=== PATIENT | female | born 1950 | race Caucasian/White ===

== ENCOUNTER 2017-05-18 06:08 | Emergency (ER) | payer MEDICARE ==
[2017-05-18] MEDS ORDERED: IPRATROPIUM/ALBUTEROL 0.5-2.5 MG/3 ML AMPUL NEB ONE (06:33)
[2017-05-18] MEDS ORDERED: PREDNISONE 20 MG TABLET PO ONE (06:34)
--- NOTE | 2017-05-18 06:38 | ER Document Report ---
ED Respiratory Problem - General Chief Complaint: Shortness Of Breath Stated Complaint: DIFFICULTY BREATHING,EAR PAIN Time Seen by Provider: 05/18/17 06:33 Notes: The patient is a 66-year-old female, past medical history asthma, presents with 4 days of sinus congestion, bilateral ear pain and one night of productive cough and shortness of breath. She tried her albuterol inhaler without much relief of her symptoms. Her granddaughter had similar symptoms this week. Patient denies fevers, hemoptysis, increased leg swelling, nausea, vomiting, abdominal pain, chest pain or recent travel. TRAVEL OUTSIDE OF THE [place] IN LAST 30 DAYS: No - Related Data Allergies/Adverse Reactions: No Known Allergies Allergy (Verified 05/18/17 06:14) Past Medical History - General Information source: Patient - Social History Smoking Status: Unknown if Ever Smoked Family History: CAD - Past Medical History Cardiac Medical History: Reports: Hx Hypercholesterolemia, Hx Hypertension Pulmonary Medical History: Reports: Hx Asthma Endocrine Medical History: Reports: Hx Diabetes Mellitus Type 2 Musculoskeltal Medical History: Reports Hx Arthritis Psychiatric Medical History: Reports: Hx Depression Past Surgical History: Reports: Hx Orthopedic Surgery - bilat knee - Immunizations Hx Pneumococcal Vaccination: 06/24/09 Review of Systems - Review of Systems Notes: REVIEW OF SYSTEMS: CONSTITUTIONAL: -fevers, -chills EENT: -eye pain, -difficulty swallowing, +nasal congestion, +ear pain CARDIOVASCULAR:-chest pain, -syncope. RESPIRATORY: +cough, +SOB GASTROINTESTINAL: -abdominal pain, - nausea, -vomiting, -diarrhea GENITOURINARY: -dysuria, -hematuria MUSCULOSKELETAL: -back pain, -neck pain SKIN: -rash or skin lesions. HEMATOLOGIC: -easy bruising or bleeding. LYMPHATIC: -swollen, enlarged glands. NEUROLOGICAL: -altered mental status or loss of consciousness, -headache, - neurologic symptoms PSYCHIATRIC: -anxiety, -depression. ALL OTHER SYSTEMS REVIEWED AND NEGATIVE. Physical Exam - Vital signs Vitals: Temp Pulse Resp BP Pulse Ox 98.5 F 110 H 16 174/70 H 94 05/18/17 06:14 05/18/17 06:14 05/18/17 06:14 05/18/17 06:14 05/18/17 06:14 - Notes Notes: PHYSICAL EXAMINATION: GENERAL: Anxious appearing. HEAD: Atraumatic, normocephalic. EYES: Pupils equal round and reactive to light, extraocular movements intact, sclera anicteric, conjunctiva are normal. ENT: nares patent, oropharynx clear without exudates. Moist mucous membranes. Maxillary sinus tenderness. Normal TMs. Wax in left ear canal. NECK: Normal range of motion, supple without lymphadenopathy LUNGS: Wheezing in Right Upper Lung. Crackles in B/L lower lung bases. No respiratory distress. HEART: Tachycardia. ABDOMEN: Soft, nontender, normoactive bowel sounds. No guarding, no rebound. No masses appreciated. EXTREMITIES: Strong distal pulses. Swelling of B/L calves. NEUROLOGICAL: Cranial nerves grossly intact. Normal speech, normal gait. Normal sensory and motor exams. PSYCH: Anxious appearing. SKIN: Warm, Dry, normal turgor, no rashes or lesions noted. Course - Re-evaluation Re-evalutation: Patient appears well and says she feels much better. CTA does not show evidence of PE, but does show evidence of bilateral pneumonias. Also informed patient about presence of lymphadenopathy and follow-up with her primary care physician for further evaluation and treatment. A copy of her CTA was provided to the patient. A dose of IV antibiotics was prescribed to the patient and she will go home with oral antibiotics. She is not hypoxic and her tachycardia resolved. Rest of blood work is unremarkable. Patient given very strict return precautions and she understands. - Vital Signs Vital signs: Temp Pulse Resp BP Pulse Ox 98.5 F 110 H 16 174/70 H 94 05/18/17 06:14 05/18/17 06:14 05/18/17 06:14 05/18/17 06:14 05/18/17 06:14 - Laboratory Result Diagrams: 05/18/17 07:05 05/18/17 07:05 Laboratory results interpreted by me: 05/18/17 05/18/17 05/18/17 07:05 07:05 07:05 WBC 13.1 H Hgb 11.6 L Hct 35.3 L Seg Neutrophils % 81.5 H Lymphocytes % 8.2 L Absolute Neutrophils 10.7 H D-Dimer 2.20 H Est GFR ( Amer) 59 L Est GFR (Non-Af Amer) 49 L Glucose 260 H Direct Bilirubin 0.5 H - Diagnostic Test Radiology reviewed: Image reviewed, Reports reviewed Radiology results interpreted by me: CXR: NAD CTA Chest: 1. No pulmonary embolus. 2. Patchy right greater than left lung infiltrates. 3. Mild mediastinal and hilar adenopathy, nonspecific. This needs further clinical followup. There is mild right axillary adenopathy which appears to have been present previously, but likely slightly progressive. Discharge - Discharge Clinical Impression: Lymphadenopathy Pneumonia Qualifiers: Pneumonia type: due to unspecified organism Laterality: bilateral Lung location : lower lobe of lung Qualified Code(s): J18.9 - Pneumonia, unspecified organism Condition: Stable Disposition: HOME, SELF-CARE Additional Instructions: PNEUMONIA: Your examination indicates that you have pneumonia. This is an infection of the lung tissue, usually caused by bacteria or a virus. Symptoms include cough, fever, shaking chills, chest pain, shortness of breath, and coughing up bloody sputum. Treatment for bacterial pneumonia includes rest, antibiotics for 10 to 14 days, increasing your clear liquid intake, a cool mist humidifier at your bedside, and fever medication. Often, a repeat chest X-ray is performed in a few weeks--even if you feel better--to ascertain whether the infection has completely resolved and no underlying lung problem is present. You should call the physician if you develop persistent vomiting, high fever that does not respond to fever medication, increasing shortness of breath , confusion, or lethargy. Also, failure to improve within two to three days is an indication for re-examination. ANTIBIOTIC INJECTION: You have been given an antibiotic injection. Sometimes the injection must be combined with antibiotic pills. For some infections, the shot provides all the antibiotic that's needed. Common side effects of antibiotics include nausea, intestinal cramping, or diarrhea. These are very unusual following a shot. Women may develop vaginal yeast infections, and babies can get yeast ( thrush) in the mouth following the use of antibiotics. Contact your physician if you develop significant side effects from this medication. Allergy to this antibiotic can result in hives, wheezing, faintness, or itching. If symptoms of allergy occur, call the doctor at once. ROCEPHIN: You have been given an injection of an antibiotic called Rocephin ( ceftriaxone). Sometimes the injection must be combined with antibiotic pills. For some infections, such as an uncomplicated ear infection, Rocephin provides all the antibiotic that's needed. The antibiotic will be in your body for about two days. For serious infections, we usually repeat doses of Rocephin daily. Side effects are very unusual following a shot. Women may develop vaginal yeast infections, and babies can get yeast (thrush) in the mouth following the use of antibiotics. Contact your physician if you have symptoms with this medication. Allergy to this antibiotic can result in hives, wheezing, faintness, or itching. If symptoms of allergy occur, call the doctor at once. ANTIBIOTIC THERAPY: You have been given an antibiotic prescription. It's important that you take all the medication, unless instructed otherwise by your physician. Failure to complete the entire course can result in relapse of your condition. Common side effects of antibiotics include nausea, intestinal cramping, or diarrhea. Women may develop vaginal yeast infections, and babies can get yeast (thrush) in the mouth following the use of antibiotics. Contact your physician if you develop significant side effects from this medication. Allergy to this antibiotic can result in hives, wheezing, faintness, or itching. If symptoms of allergy occur, stop the medication and call the doctor. DOXYCYCLINE: Doxycycline (Vibramycin, Doryx) is an antibiotic of the tetracycline family. This type of drug is useful for infections of the respiratory tract and genital tract, and is sometimes used for intestinal infections. Unlike most tetracyclines, doxycycline can be taken with food. It is longer acting, and (usually) less prone to side effects than regular tetracycline. Tetracycline antibiotics can stain immature teeth and SHOULD NOT BE TAKEN BY CHILDREN, NURSING MOTHERS, OR WOMEN. Tetracyclines can make you more prone to sunburn. Abdominal cramping, nausea, and diarrhea are occasional side effects. Women may experience vaginal yeast infections. Call the doctor at once if you develop hives, itching, shortness of breath , or lightheadedness. USE OF ACETAMINOPHEN (Tylenol): Acetaminophen may be taken for pain relief or fever control. It's much safer than aspirin, offering a wider range of "safe" dosages. It is safe during . Some brand names are Tylenol, Panadol, Datril, Anacin 3, Tempra, and Liquiprin. Acetaminophen can be repeated every four hours. The following are maximum recommended dosages: WEIGHT Dose Drops Elixir Chewable( 80mg) (LBS.) drprs=droppers tsp=teaspoon 6 40 mg 0.4 ml (1/2) 6-11 80 mg 0.8 ml (full) tsp 1 tab 12-16 120 mg 1 1/2 drprs 3/4 tsp 1 1/2 tabs 17-23 160 mg 2 drprs 1 tsp 2 tabs 24-30 240 mg 3 drprs 1 1/2 tsp 3 tabs 30-35 320 mg 2 tsp 4 tabs 36-41 360 mg 2 1/4 tsp 4 1/2 tabs 42-47 400 mg 2 1/2 tsp 5 tabs 48-53 480 mg 3 tsp 6 tabs 54-59 520 mg 3 1/4 tsp 6 1/2 tabs 60-64 560 mg 3 1/2 tsp 7 tabs 65-70 600 mg 3 3/4 tsp 7 1/2 tabs 71-76 640 mg 4 tsp 8 tabs 77-82 720 mg 4 1/2 tsp 9 tabs 83-88 800 mg 5 tsp 10 tabs >89 pounds or adults 650 mg to 900 mg Acetaminophen can be repeated every four hours. Maximum dose not to exceed 4000 mg a day. These maximum recommended dosages are slightly higher than the dosages written on the product container, but these dosages are very safe and below the toxic dosage for acetaminophen. FOLLOW-UP CARE: If you have been referred to a physician for follow-up care, call the physician s office for an appointment as you were instructed or within the next two days. If you experience worsening or a significant change in your symptoms, notify the physician immediately or return to the Emergency Department at any time for re-evaluation. Prescriptions: Albuterol Sulfate [Proair HFA Inhalation Aerosol 8.5 gm MDI] 2 puff IH Q4H PRN # 1 mdi PRN Reason: Doxycycline Hyclate 100 mg PO BID #14 capsule Forms: Elevated Blood Pressure Referrals: EHSAN RIOS PA-C [Primary Care Provider] - Follow up as needed
[2017-05-18 07:36] LABS: ABSOLUTE BASOPHILS # (AUTO) 0.1 10^3/uL (0.0-0.2); ABSOLUTE LYMPHOCYTES (AUTO) 1.1 10^3/uL (0.5-4.7); ABSOLUTE MONOCYTES (AUTO) 1.2 10^3/uL (0.1-1.4); ABSOLUTE NEUT (AUTO) 10.7 10^3/uL (1.7-8.2); EOSINOPHILS % (AUTO) 0.1 % (0-6); HEMATOCRIT 35.3 % (36.0-47.0); HEMOGLOBIN 11.6 g/dL (12.0-15.5); HGB HCT DIFFERENCE -0.5; LYMPHOCYTES % (AUTO) 8.2 % (13-45); MEAN CORPUSCULAR HEMOGLOBIN 30.5 pg (27.0-33.4); MEAN CORPUSCULAR HGB CONC 32.9 g/dL (32.0-36.0); MEAN CORPUSCULAR VOLUME 93 fl (80-97); MONOCYTES % (AUTO) 9.2 % (3-13); RED BLOOD COUNT 3.81 10^6/uL (3.72-5.28); RED CELL DISTRIBUTION WIDTH 12.8 % (11.5-14.0); SEGMENTED NEUTROPHILS % (AUTO) 81.5 % (42-78); WHITE BLOOD COUNT 13.1 10^3/uL (4.0-10.5)
[2017-05-18 07:49] LABS: ALANINE AMINOTRANSFERASE 40 U/L (9-52); ALBUMIN 3.7 g/dL (3.5-5.0); ALKALINE PHOSPHATASE 82 U/L (38-126); ANION GAP 15 (5-19); ASPARTATE AMINO TRANSFERASE 16 U/L (14-36); BILIRUBIN,DIRECT 0.5 mg/dL (0.0-0.4); BILIRUBIN,TOTAL 0.5 mg/dL (0.2-1.3); BLOOD UREA NITROGEN 20 mg/dL (7-20); CALCIUM 9.5 mg/dL (8.4-10.2); CARBON DIOXIDE 24 mmol/L (22-30); CHLORIDE 102 mmol/L (98-107); CREATININE RESULT 1.12 mg/dL (0.52-1.25); GLUCOSE 260 mg/dL (75-110); POTASSIUM 4.5 mmol/L (3.6-5.0); TOTAL PROTEIN 7.5 g/dL (6.3-8.2)
[2017-05-18] MEDS ORDERED: MIDAZOLAM 2 MG/2 ML INJ IV ONE (08:17)
--- NOTE | 2017-05-18 08:43 | RADIOLOGY REPORT (SQ) ---
EXAM DESCRIPTION: CHEST PA/LAT COMPLETED DATE/TIME: 05/18/2017 8:25 am REASON FOR STUDY: SOB COMPARISON: 2013. TECHNIQUE: Frontal and lateral radiographic views of the chest acquired. NUMBER OF VIEWS: Two view. LIMITATIONS: None. FINDINGS: LUNGS AND PLEURA: No opacities, masses or pneumothorax. No pleural effusion. MEDIASTINUM AND HILAR STRUCTURES: No masses or contour abnormalities. HEART AND VASCULAR STRUCTURES: Heart normal size. No evidence for failure. BONES: No acute findings. HARDWARE: None in the chest. OTHER: No other significant finding. IMPRESSION: NO SIGNIFICANT RADIOGRAPHIC FINDING IN THE CHEST. TECHNICAL DOCUMENTATION: JOB ID: [id number] [employer]- All Rights Reserved
--- NOTE | 2017-05-18 09:07 | RADIOLOGY REPORT (SQ) ---
EXAM DESCRIPTION: CTA CHEST COMPLETED DATE/TIME: 05/18/2017 8:43 am REASON FOR STUDY: SOB, tachycardia, elevated d-dimer COMPARISON: 2013 TECHNIQUE: CT scan of the chest performed using helical scanning technique with dynamic intravenous contrast injection. Images reviewed with lung, soft tissue and bone windows. Reconstructed coronal and sagittal MPR images reviewed. Additional 3 dimensional post-processing performed to develop Maximal Intensity Projection images (CA P). All images stored on PACS. All CT scanners at this facility use dose modulation, iterative reconstruction, and/or weight based d osing when appropriate to reduce radiation dose to as low as reasonably achievable (ALARA). [facility]: Dose Right [facility]: CareDose [facility]: Dose Right [facility]: Teradose 4D [facility]: Greatist CONTRAST TYPE AND DOSE: contrast/concentration: Isovue 370.00 mg/ml; Total Contrast Delivered: 86.0 ml; Total Saline Delivered: 80.1 ml Contrast bolus optimized for the pulmonary arteries. Not diagnostic for the aorta. RENAL FUNCTION: Creatinine 1.1 RADIATION DOSE: CT Rad equipment meets quality standard of care and radiation dose reduction techniq ues were employed. CTDIvol: 34.1 - 49.6 mGy. DLP: 1270 mGy-cm. . LIMITATIONS: None. FINDINGS: LUNGS AND PLEURA: Mild patchy nodular appearing areas of infiltrate in the right upper lob e, right middle lobe, right lower lobe. Also suggested in the left lower lobe. No significant pleur al effusion. AORTA AND GREAT VESSELS: No aneurysm. Contrast bolus not optimized for the aorta. HEART: No pericardial effusion. No significant coronary artery calcifications. PULMONARY ARTERIES: No emboli visualized in the main pulmonary arteries or the segmental branches. HILAR AND MEDIASTINAL STRUCTURES: Mild nonspecific patch that mild adenopathy with nodes measuring ju st under 1.5 cm short axis maximally. Mediastinal and right greater than left hilar. Slightly consp icuous number and size of right axillary nodes as well, up to 1.4 cm in short axis. HARDWARE: None in the chest. UPPER ABDOMEN: No significant findings. Limited exam. THYROID AND OTHER SOFT TISSUES: No masses. No adenopathy. BONES: No acute or significant finding. 3D MIPS: Confirm above findings. OTHER: No other significant finding. IMPRESSION: 1. No pulmonary embolus. 2. Patchy right greater than left lung infiltrates. 3. Mild m ediastinal and hilar adenopathy, nonspecific. This needs further clinical followup. There is mild r ight axillary adenopathy which appears to have been present previously, but likely slightly progressi ve. COMMENT: Quality ID # [id number]: Final reports with documentation of one or more dose reduction techniques (e.g., Automated exposure control, adjustment of the mA and/or kV according to patient size, use of iterative reconstruction technique) TECHNICAL DOCUMENTATION: JOB ID: [id number] [employer]- All Rights Reserved
[2017-05-18] MEDS ORDERED: CEFTRIAXONE 1 GM/D5W RTU 1 GM/50 ML RTUPB IV ONE (09:08)
[2017-05-18] MEDS ORDERED: AZITHROMYCIN INJ 500 MG VIAL IV ONE (09:08)
[2017-05-18] MEDS ORDERED: DOXYCYCLINE HYCLATE 100 MG TABLET PO ONE (10:16)
[2017-05-18 10:37] VITALS: BP 156/78
--- NOTE | 2017-05-18 14:07 | EKG REPORT ---
SEVERITY:- NORMAL ECG - SINUS RHYTHM : Confirmed by: Georgia Wu MD 18-May-2017 14:07:05
== END 2017-05-18 11:30 | disposition home or self-care (01) ==
LOC: ER 06:08
DX: J18.9 Pneumonia, unspecified organism (principal); J45.909 Unspecified asthma, uncomplicated; R59.0 Localized enlarged lymph nodes; R09.81 Nasal congestion; H92.03 Otalgia, bilateral; R05 Cough; R06.02 Shortness of breath; R00.0 Tachycardia, unspecified; E11.9 Type 2 diabetes mellitus without complications; I10 Essential (primary) hypertension; Z82.49 Family history of ischemic heart disease and other diseases of the circulatory system
CPT/HCPCS: 93005; 94640; 99285; 96375; 96365; 96367; 36415; 85025; 80053; 85379; 71020; 71275; 93010; J2250; A9270 ×3; J0456; J0696; J7512; J7620

== ENCOUNTER 2018-04-11 00:19 | Inpatient (IN) | payer MEDICARE ==
[2018-04-11] MEDS ORDERED: IPRATROPIUM/ALBUTEROL 0.5-2.5 MG/3 ML AMPUL NEB ONE ×2 (00:30→00:40)
[2018-04-11] MEDS ORDERED: METHYLPREDNISOLONE INJ 125 MG/2 ML SDV IV ONE (00:39)
[2018-04-11] MEDS ORDERED: RINGERS SOLUTION,LACTATED 1,000 ML IV ONE (00:40)
[2018-04-11] MEDS ORDERED: ALBUTEROL SULFATE 0.083% NEB 2.5 MG/3 ML AMPUL NEB ONE ×2 (00:41→02:48)
--- NOTE | 2018-04-11 00:52 | ER Document Report ---
ED General - General Chief Complaint: Shortness Of Breath Stated Complaint: SHORTNESS OF BREATH Time Seen by Provider: 04/11/18 00:32 Notes: Patient is a 67-year-old female with a past medical history of asthma, morbid obesity, hypertension, who presents with respiratory distress, cough without sputum production that has been progressively worsening over the last 48 hours. The patient reports that this feels very similar to when she has had pneumonia and asthma exacerbations in the past. She did contact her primary care doctor yesterday regarding this issue, was started on albuterol and doxycycline states that her breathing has progressively worsened prompting her to come to the emergency department today. She denies any fever or constitutional symptoms. Multiple sick contacts at home. She denies chest pain. Nothing worsens her symptoms. TRAVEL OUTSIDE OF THE [place] IN LAST 30 DAYS: No - Related Data Allergies/Adverse Reactions: No Known Allergies Allergy (Verified 05/18/17 06:14) Past Medical History - General Information source: Patient - Social History Smoking Status: Former Smoker Frequency of alcohol use: None Drug Abuse: None Lives with: Family Family History: CAD - Past Medical History Cardiac Medical History: Reports: Hx Hypercholesterolemia, Hx Hypertension Pulmonary Medical History: Reports: Hx Asthma Endocrine Medical History: Reports: Hx Diabetes Mellitus Type 2 Renal/ Medical History: Denies: Hx Peritoneal Dialysis Musculoskeletal Medical History: Reports Hx Arthritis Psychiatric Medical History: Reports: Hx Depression Past Surgical History: Reports: Hx Orthopedic Surgery - bilat knee - Immunizations Hx Pneumococcal Vaccination: 06/24/09 Review of Systems - Review of Systems Notes: Constitutional: Negative for fever. HENT: Negative for sore throat. Eyes: Negative for visual changes. Cardiovascular: Negative for chest pain. Respiratory: Positive for shortness of breath and cough Gastrointestinal: Negative for abdominal pain, vomiting or diarrhea. Genitourinary: Negative for dysuria. Musculoskeletal: Negative for back pain. Skin: Negative for rash. Neurological: Negative for headaches, weakness or numbness. 10 point ROS negative except as marked above and in HPI. Physical Exam - Vital signs Vitals: Temp Pulse Resp BP Pulse Ox 98.9 F 102 H 24 H 166/85 H 94 04/11/18 00:26 04/11/18 00:26 04/11/18 00:26 04/11/18 00:26 04/11/18 00:26 Interpretation: Tachycardic, Tachypneic Notes: PHYSICAL EXAMINATION: GENERAL: In moderate respiratory distress. Uncomfortable HEAD: Atraumatic, normocephalic. EYES: Pupils equal round and reactive to light, extraocular movements intact, sclera anicteric, conjunctiva are normal. ENT: nares patent, oropharynx clear without exudates. Moderately dry mucous membranes. NECK: Normal range of motion, supple without lymphadenopathy LUNGS: Tachypneic, scattered wheezing both on the inspiratory and expiratory phase HEART: Regular tachycardia without murmurs ABDOMEN: Soft, nontender, normoactive bowel sounds. No guarding, no rebound. No masses appreciated. EXTREMITIES: Normal range of motion, no pitting or edema. No cyanosis. NEUROLOGICAL: No focal neurological deficits. Moves all extremities spontaneously and on command. PSYCH: moderately anxious SKIN: Warm, Dry, normal turgor, no rashes or lesions noted. Course - Re-evaluation Re-evalutation: 04/11/18 00:30 Patient presents in respiratory distress, tachypneic, moderately hypoxic, unable to speak in complete sentences. Patient has a history of asthma, states that this feels similar to prior severe exacerbations that she has had in the past. Patient does not require intubation or immediate placement of BiPAP at this point. She has been placed on continuous nebulizers, steroids and magnesium are infusing. Will continue to reassess at regular intervals. 04/11/18 00:53 Patient's work of breathing remains relatively improved on continuous nebulizers. Currently 94% on room air with continuous nebs. Will continue to reassess at regular intervals. 04/11/18 01:48 Patient's breath sounds are much improved although she is struggling to tolerate the continuous neb as she states that is making her nauseated and anxious. I have encouraged her to please continue to comply with treatment as she is improving with these measures. Chest x-ray without evidence of pneumonia. Will continue to reassess. 04/11/18 02:32 Patient's work of breathing continues to be improved although her lung exam remains very poor with diffuse wheezing in all lung vaz. I have discussed with the hospitalist for admission given her ongoing poor lung exam and she has accepted the patient for admission. - Vital Signs Vital signs: Temp Pulse Resp BP Pulse Ox 98.9 F 102 H 24 H 166/85 H 94 04/11/18 00:26 04/11/18 00:26 10/19/18 00:26 04/11/18 00:26 04/11/18 00:26 - Laboratory Result Diagrams: 04/11/18 01:25 04/11/18 01:25 Laboratory results interpreted by me: 04/11/18 04/11/18 01:25 01:25 WBC 13.3 H Seg Neutrophils % 81.6 H Lymphocytes % 10.4 L Absolute Neutrophils 10.9 H Est GFR ( Amer) 55 L Est GFR (Non-Af Amer) 45 L Glucose 255 H Total Protein 8.4 H - Diagnostic Test Radiology reviewed: Image reviewed, Reports reviewed Radiology results interpreted by me: 04/11/18 02:32 Chest x-ray: No acute infiltrate or pneumothorax Critical Care Note - Critical Care Note Total time excluding time spent on procedures (mins): 37 Comments: Critical care time spent obtaining history from patient or surrogate, discussions with consultants, development of treatment plan with patient or surrogate, evaluation of patient's response to treatment, examination of patient , ordering and performing treatments and interventions, ordering and review of laboratory studies, re-evaluation of patient's condition, ordering and review of radiographic studies and review of old charts Discharge - Discharge Clinical Impression: Respiratory distress, Morbid obesity Asthma exacerbation Qualifiers: Asthma severity: moderate Asthma persistence: persistent Qualified Code(s): J45.41 - Moderate persistent asthma with (acute) exacerbation Condition: Fair Disposition: ADMITTED OBSERVATION Admitting Provider: Hospitalist Unit Admitted: Telemetry Referrals: EHSAN RIOS PA-C [Primary Care Provider] - Follow up as needed
--- NOTE | 2018-04-11 01:12 | RADIOLOGY REPORT (SQ) ---
EXAM DESCRIPTION: XR CHEST 1 VIEW COMPLETED DATE/TME: 04/11/2018 00:33 CLINICAL HISTORY: 67 years Female sob COMPARISON: 05/18/2017. FINDINGS: The cardiomediastinal silhouette appears unremarkable. No consolidating infiltrates or pleural effusions. No pneumothorax. Degenerative changes in the spine. Mediastinum appears slightly widened. IMPRESSION: No acute process noted The mediastinum appears slightly widened as compared to the previous exam but this may be in part due to AP technique and tortuous vessels.
[2018-04-11 01:32] LABS: ABSOLUTE BASOPHILS # (AUTO) 0.1 10^3/uL (0.0-0.2); ABSOLUTE EOSINOPHILS # (AUTO) 0.2 10^3/uL (0.0-0.6); ABSOLUTE LYMPHOCYTES (AUTO) 1.4 10^3/uL (0.5-4.7); ABSOLUTE MONOCYTES (AUTO) 0.8 10^3/uL (0.1-1.4); ABSOLUTE NEUT (AUTO) 10.9 10^3/uL (1.7-8.2); BASOPHILS % (AUTO) 0.6 % (0-2); EOSINOPHILS % (AUTO) 1.6 % (0-6); HEMATOCRIT 39.4 % (36.0-47.0); HEMOGLOBIN 12.8 g/dL (12.0-15.5); LYMPHOCYTES % (AUTO) 10.4 % (13-45); MEAN CORPUSCULAR HEMOGLOBIN 30.1 pg (27.0-33.4); MEAN CORPUSCULAR HGB CONC 32.5 g/dL (32.0-36.0); MEAN CORPUSCULAR VOLUME 93 fl (80-97); MONOCYTES % (AUTO) 5.8 % (3-13); PLATELET COUNT 371 10^3/uL (150-450); RED BLOOD COUNT 4.26 10^6/uL (3.72-5.28); RED CELL DISTRIBUTION WIDTH 13.1 % (11.5-14.0); SEGMENTED NEUTROPHILS % (AUTO) 81.6 % (42-78); TOTAL CELLS COUNTED % (AUTO) 100 %; WHITE BLOOD COUNT 13.3 10^3/uL (4.0-10.5)
[2018-04-11] MEDS: MAGNESIUM SULFATE/D5W 1 GM/100 ML RTUPB IV SCH ×2 (01:39→02:15)
[2018-04-11 01:47] LABS: ALANINE AMINOTRANSFERASE 21 U/L (9-52); ALBUMIN 4.3 g/dL (3.5-5.0); ALKALINE PHOSPHATASE 93 U/L (38-126); ANION GAP 13 (5-19); ASPARTATE AMINO TRANSFERASE 23 U/L (14-36); BILIRUBIN,DIRECT 0.2 mg/dL (0.0-0.4); BILIRUBIN,TOTAL 0.5 mg/dL (0.2-1.3); BLOOD UREA NITROGEN 19 mg/dL (7-20); CARBON DIOXIDE 23 mmol/L (22-30); CHLORIDE 105 mmol/L (98-107); GLUCOSE 255 mg/dL (75-110); SODIUM 140.8 mmol/L (137-145); TOTAL PROTEIN 8.4 g/dL (6.3-8.2)
[2018-04-11 02:20] LABS: NT PRO BNP 319 pg/mL (5-900)
[2018-04-11 02:21] LABS: TROPONIN I < 0.012 ng/mL
[2018-04-11] MEDS ORDERED: DIAZEPAM INJ 10 MG/2 ML DISP.SYRIN IV ONE (02:48)
[2018-04-11] MEDS ORDERED: ONDANSETRON HCL INJ/PF 4 MG/2 ML SDV IV ONE (02:49)
[2018-04-11] MEDS ORDERED: ACETAMINOPHEN 325 MG TABLET PO PRN (04:25)
[2018-04-11] MEDS ORDERED: TEMAZEPAM 7.5 MG CAPSULE PO PRN (04:25)
[2018-04-11] MEDS ORDERED: MAG HYDROX/AL HYDROX/SIMETH SUSP 30 ML UDCUP PO PRN (04:25)
[2018-04-11] MEDS ORDERED: PROMETHAZINE HCL INJ 25 MG/1 ML VIAL IV PRN (04:25)
[2018-04-11] MEDS ORDERED: PROMETHAZINE HCL 25 MG TABLET PO PRN (04:25)
[2018-04-11] MEDS ORDERED: DEXTROSE 50%-WATER 25 GM/50 ML DISP.SYRIN IV PRN ×2 (04:51)
[2018-04-11] MEDS ORDERED: GLUCAGON,HUMAN RECOMB 1 MG INJ IM PRN (04:51)
[2018-04-11] MEDS ORDERED: DEXTROSE 40% GEL 15 GM TUBE PO PRN ×2 (04:51)
--- NOTE | 2018-04-11 05:06 | PDOC H&P ---
History of Present Illness Admission Date/PCP: 04/11/18 02:37 EHSAN RIOS PA-C Patient complains of: Shortness of breath History of Present Illness: OLIVE BLANCA is a 67 year old female with medical history of bronchial asthma comes to the emergency department complaining of shortness of breath for the last 2 days. Apparently she has started with cold like symptoms follow with cough with mild yellowish sputum, progressive shortness of breath, wheezing, thoracic pleuritic chest pain. Denies any fever or chills. Tells me that her symptoms are not frequent and she ran out of her nebulizer treatments. Her primary care physician was called in the morning who gave her a prescription by 6 PM, her first nebulizer treatment was around 6 PM initially she was feeling a little bit better but an hour later started worsening and decided to come to the emergency department. She denies nausea, vomiting, abdominal pain, urinary symptoms or changes in her bowel movements. Initially patient was in respiratory distress, tachypneic, moderately hypoxic, unable to speak in full sentences. Patient was initiated on BiPAP but at the time of my evaluation she was comfortable on 2 L oxygen via nasal cannula. Currently saturating 94-96%. Still with moderate to severe wheezing, feels needs to stay in the hospital for further care. Chest x-ray negative for acute infiltrates. Past Medical History Cardiac Medical History: Reports: Hyperlipidema, Hypertension Pulmonary Medical History: Reports: Asthma Endocrine Medical History: Reports: Diabetes Mellitus Type 2 Musculoskeltal Medical History: Reports: Arthritis Psychiatric Medical History: Reports: Depression Past Surgical History Past Surgical History: Reports: Cardiac Catheterization, Orthopedic Surgery - bilat knee arthroplasty Social History Lives with: Family Smoking Status: Former Smoker Frequency of Alcohol Use: None Hx Recreational Drug Use: No Hx Prescription Drug Abuse: No Family History Family History: CAD, DM, Hypertension Parental Family History Reviewed: Yes - As above Children Family History Reviewed: NA Sibling(s) Family History Reviewed.: NA Medication/Allergy Home Medications: Amlodipine Besylate [Norvasc 10 mg Tablet] 10 mg PO DAILY 06/03/14 Bupropion HCl [Wellbutrin Xl 300mg 24hr Tablet] 300 mg PO QAM 06/03/14 Hydrochlorothiazide [Hydrodiuril 25 mg Tablet] 25 mg PO QAM 06/03/14 Hydrocodone/Acetaminophen [Hydrocodone-Acetamin 7.5-325] 2 tab PO Q4H PRN Insulin Regular, Human [Humulin R (Reg) Insulin 100 unit/mL] 0 unit SUBCUT .SLD SCALE 06/03/14 Linagliptin [Tradjenta] 5 mg PO DAILY 06/03/14 NPH, Human Insulin Isophane [Humulin N (NPH) Insulin 100 unit/mL] 40 unit SUBCUT BIDACBS 06/03/14 Pravastatin Sodium [Pravachol] 40 mg PO QAM 06/03/14 Tramadol HCl 100 mg PO TID 06/03/14 Albuterol Sulfate [Albuterol Sulfate Hfa] 1 - 2 puff IH Q4 PRN #1 hfa.aer.ad Clindamycin HCl [Cleocin 300 mg Capsule] 600 mg PO Q6 #80 cap 06/11/14 Ferrous Sulfate [Feosol 325 mg Tablet] 325 mg PO DAILY #30 tablet 06/11/14 Fluticasone/Salmeterol [Advair 250-50 Diskus 14 Dose/Diskus] 1 inh IH Q12 #1 inhaler 06/11/14 Levofloxacin [Levaquin 750 mg Tablet] 750 mg PO DAILY #10 tab 06/11/14 Metoprolol Succinate [Toprol Xl 25 mg Tab.sr] 25 mg PO DAILY #30 tab.sr.24h Albuterol Sulfate [Proair HFA Inhalation Aerosol 8.5 gm MDI] 2 puff IH Q4H PRN # 1 mdi 05/18/17 Doxycycline Hyclate 100 mg PO BID #14 capsule 05/18/17 Allergies/Adverse Reactions: No Known Allergies Allergy (Verified 05/18/17 06:14) Review of Systems Review of Systems: As outlined above, others negative Physical Exam Vital Signs: Temp Pulse Resp BP Pulse Ox 98.9 F 102 H 21 H 159/79 H 87 L 04/11/18 00:26 04/11/18 00:26 04/11/18 04:01 04/11/18 04:01 04/11/18 03:01 Additional comments: General appearance: Well-developed, morbid obese, alert and cooperative, and appears to be in no acute distress Head: Normocephalic Eyes: PEERL, EOMI, vision is grossly intact. Ears: External auditory canal and tympanic membranes clear, hearing grossly intact. Nose: No nasal discharge. Throat: Oral cavity and pharynx normal. No inflammation, swelling, exudate or lesions. Neck: Neck supple, nontender without lymphadenopathy, masses or thyromegaly. Cardiac: Normal S1 and S2. No S3, S4 or murmurs. Rhythm is regular. There is no peripheral edema, cyanosis or pallor. Extremities are warm and well perfused. Capillary refill is less than 2 seconds. No carotid bruits. Lungs: Bilateral moderate to severe expiratory wheezing with mild rhonchi, do not appreciate crackles, not using accessory muscles. Abdomen: Positive bowel sounds. Soft. Nondistended, nontender. No guarding or rebound. No masses. No hepatosplenomegaly Extremities: No significant deformity or joint abnormality. No edema. Peripheral pulses intact. No varicosities. Neurological: Cranial nerves II through XII grossly intact. Strength and sensation symmetric and intact throughout. Reflexes 2+ throughout. Skin: Skin normal color, texture and turgor with no lesions or eruptions, warm and dry. Psychiatric: The mental examination revealed the patient was oriented to person , place, and time. The patient was able to demonstrate good judgment on recent , without hallucinations, abnormal affect or abnormal behaviors. Results Laboratory Results: 04/11/18 04/11/18 04/11/18 01:25 01:25 01:25 WBC 13.3 H RBC 4.26 Hgb 12.8 Hct 39.4 MCV 93 MCH 30.1 MCHC 32.5 RDW 13.1 Plt Count 371 Seg Neutrophils % 81.6 H Lymphocytes % 10.4 L Monocytes % 5.8 Eosinophils % 1.6 Basophils % 0.6 Absolute Neutrophils 10.9 H Absolute Lymphocytes 1.4 Absolute Monocytes 0.8 Absolute Eosinophils 0.2 Absolute Basophils 0.1 Sodium 140.8 Potassium 5.0 Chloride 105 Carbon Dioxide 23 Anion Gap 13 BUN 19 Creatinine 1.19 Est GFR ( Amer) 55 L Est GFR (Non-Af Amer) 45 L Glucose 255 H Calcium 10.0 Total Bilirubin 0.5 Direct Bilirubin 0.2 AST 23 ALT 21 Alkaline Phosphatase 93 Troponin I < 0.012 NT-Pro-B Natriuret Pep 319 Total Protein 8.4 H Albumin 4.3 Impressions: Chest X-Ray 04/11/18 00:33 IMPRESSION: No acute process noted The mediastinum appears slightly widened as compared to the previous exam but this may be in part due to AP technique and tortuous vessels. Assessment & Plan - Diagnosis (1) Asthma exacerbation Qualifiers: Asthma severity: moderate Asthma persistence: persistent Qualified Code(s ): J45.41 - Moderate persistent asthma with (acute) exacerbation Is this a current diagnosis for this admission?: Yes Plan: Patient comes with progressive respiratory symptoms, likely triggered by cold like symptoms. Patient will be under telemetry monitoring with close respiratory monitoring. IV Solu-Medrol 60 mg every 8 hours. Nebulizer treatments as needed. RT consult. Continue oxygen protocol via nasal cannula. (2) Morbid obesity Is this a current diagnosis for this admission?: Yes Plan: Lifestyle modification (3) Diabetes mellitus type 2 in obese Is this a current diagnosis for this admission?: Yes Plan: Continue with home insulin and linagliptin. Accu-Cheks q. before meals and at bedtime, insulin lispro sliding scale, hypoglycemia protocol. (4) HTN (hypertension) Qualifiers: Hypertension type: unspecified Qualified Code(s): I10 - Essential (primary ) hypertension Is this a current diagnosis for this admission?: Yes Plan: Continue with home antihypertensive medications. IV Lopressor as needed. - Time Time Spent: 30 to 50 Minutes - Inpatient Certification Based on my medical assessment, after consideration of the patient's comorbidities, presenting symptoms, or acuity I expect that the services needed warrant INPATIENT care.: Yes I certify that my determination is in accordance with my understanding of Medicare's requirements for reasonable and necessary INPATIENT services [42 CFR 412.3e].: Yes Medical Necessity: Risk of Complication if Not Cared For in Hospital
[2018-04-11] MEDS ORDERED: AZITHROMYCIN 500 MG in DEXTROSE 5%-WATER 250 ML IV SCH ×2 (06:00→10:00)
[2018-04-11] MEDS: INSULIN REG, HUMAN 100 UNIT/ML 3 ML VIAL (PYX) SUBCUT PRN ×3 (06:43→17:44)
[2018-04-11] MEDS: IPRATROPIUM/ALBUTEROL 0.5-2.5 MG/3 ML AMPUL NEB PRN (08:40)
[2018-04-11] MEDS: ENOXAPARIN SODIUM INJ 40 MG/0.4 ML DISP.SYRIN SUBCUT SCH (09:44)
[2018-04-11] MEDS ORDERED: METHYLPREDNISOLONE INJ 125 MG/2 ML SDV IV SCH (10:00)
[2018-04-11] MEDS ORDERED: ALBUTEROL SULFATE HFA (90 MCG/PUFF) 8 GM MDI (1 MDI/ER DISP) IH PRN (13:14)
[2018-04-11] MEDS ORDERED: PREDNISONE 20 MG TABLET PO ONE (14:00)
[2018-04-11] MEDS: HYDROCODONE/ACETAMINOPHEN 7.5-325 MG TABLET PO SCH ×2 (14:11→21:44)
[2018-04-11] MEDS ORDERED: HYDROCHLOROTHIAZIDE 25 MG TABLET PO ONE (15:30)
[2018-04-11] MEDS ORDERED: AMLODIPINE BESYLATE 10 MG TABLET PO ONE (16:00)
[2018-04-11] MEDS: INSULIN NPH (ISOPHANE), HUMAN 100 UNIT/ML 3 ML SUBCUT SCH (17:11)
[2018-04-11] MEDS ORDERED: (PENDING PHARMACY ID) (Nph, Human Insulin Isophane [Novolin N (Nph) Insulin 100 Unit/Ml] 4 SUBCUT SCH (18:00)
[2018-04-11] MEDS: BUPROPION HCL 100 MG TABLET PO SCH (21:45)
[2018-04-11] MEDS: ALBUTEROL SULFATE HFA (90 MCG/PUFF) 200 PUFF/8.5 GM MDI IH PRN (21:49)
[2018-04-11] MEDS ORDERED: (PENDING PHARMACY ID) (Pravastatin Sodium [Pravachol] 40 MG) PO SCH (22:00)
[2018-04-11] MEDS ORDERED: MONTELUKAST SODIUM 10 MG TABLET PO SCH (22:00)
[2018-04-11] MEDS ORDERED: ATORVASTATIN CALCIUM 10 MG TABLET PO SCH (22:00)
[2018-04-12] MEDS: INSULIN REG, HUMAN 100 UNIT/ML 3 ML VIAL (PYX) SUBCUT PRN ×2 (00:37→08:51)
[2018-04-12] MEDS: IPRATROPIUM/ALBUTEROL 0.5-2.5 MG/3 ML AMPUL NEB PRN (06:05)
[2018-04-12] MEDS: BUPROPION HCL 100 MG TABLET PO SCH (06:38)
[2018-04-12] MEDS: HYDROCODONE/ACETAMINOPHEN 7.5-325 MG TABLET PO SCH (06:38)
[2018-04-12] MEDS ORDERED: HYDROCHLOROTHIAZIDE 25 MG TABLET PO SCH (08:00)
[2018-04-12 08:02] VITALS: BP 169/48
[2018-04-12] MEDS: ENOXAPARIN SODIUM INJ 40 MG/0.4 ML DISP.SYRIN SUBCUT SCH (09:52)
[2018-04-12] MEDS: INSULIN NPH (ISOPHANE), HUMAN 100 UNIT/ML 3 ML SUBCUT SCH (09:53)
[2018-04-12] MEDS: ALBUTEROL SULFATE HFA (90 MCG/PUFF) 200 PUFF/8.5 GM MDI IH PRN (09:58)
[2018-04-12] MEDS ORDERED: AZITHROMYCIN 250 MG TABLET PO SCH (10:00)
[2018-04-12] MEDS ORDERED: PREDNISONE 20 MG TABLET PO SCH (10:00)
[2018-04-12] MEDS ORDERED: METFORMIN HCL 500 MG TABLET PO SCH (10:00)
[2018-04-12] MEDS ORDERED: SITAGLIPTIN PHOSPHATE 50 MG TABLET PO SCH (10:00)
[2018-04-12] MEDS ORDERED: AMLODIPINE BESYLATE 10 MG TABLET PO SCH (10:00)
[2018-04-12] MEDS ORDERED: RAMIPRIL 5 MG CAPSULE PO SCH (10:00)
[2018-04-12] MEDS ORDERED: (PENDING PHARMACY ID) (Linagliptin [Tradjenta] 5 MG) PO SCH (10:00)
--- NOTE | 2018-04-12 18:39 | PDOC DISCHARGE SUMMARY ---
General - Admit/Disc Date/PCP Admission Date/Primary Care Provider: 04/11/18 04:25 EHSAN RIOS PA-C Discharge Date: 04/12/18 - Discharge Diagnosis (1) Asthma exacerbation Is this a current diagnosis for this admission?: Yes Summary: Improved quickly with corticosteroids. She will finish a burst of prednisone as an outpatient. She has a nebulizer with albuterol ampules at home. (2) Morbid obesity Is this a current diagnosis for this admission?: Yes Summary: Strongly encouraged lifestyle modification. (3) Diabetes mellitus type 2 in obese Is this a current diagnosis for this admission?: Yes Summary: She has used high doses of insulin anyway, but the steroids are making it even worse, and so I recommended she used some extra insulin on a discretionary basis. - Additional Information Discharge Diet: Diabetic Discharge Activity: Activity As Tolerated Prescriptions: Azithromycin [Zithromax 250 mg Tablet] 500 mg PO DAILY #6 tablet Prednisone [Deltasone 20 mg Tablet] 40 mg PO DAILY #10 tablet Home Medications: Albuterol Sulfate [Proair HFA] 2 puff IH Q4HP PRN 04/11/18 Amlodipine Besylate [Norvasc 10 mg Tablet] 10 mg PO DAILY 04/11/18 Bupropion HCl [Wellbutrin Xl 300mg 24hr Tablet] 300 mg PO DAILY 04/11/18 Hydrochlorothiazide [Hydrodiuril 25 mg Tablet] 25 mg PO QAM 04/11/18 Hydrocodone/Acetaminophen [Hydrocodone-Acetamin 7.5-325] 2 each PO TID 04/11/18 Insulin Regular, Human [Novolin R (Reg) Insulin 100 unit/mL] 0 unit SUBCUT .SLD SCALE 04/11/18 Linagliptin [Tradjenta] 5 mg PO DAILY 04/11/18 Metformin HCl [Glucophage 500 mg Tablet] 250 mg PO DAILY 04/11/18 Montelukast Sodium [Singulair 10 mg Tablet] 10 mg PO QHS 04/11/18 NPH, Human Insulin Isophane [Novolin N (NPH) Insulin 100 unit/mL] 45 unit SUBCUT BID 04/11/18 Pravastatin Sodium [Pravachol] 40 mg PO QHS 04/11/18 Ramipril [Altace] 5 mg PO DAILY 04/11/18 Azithromycin [Zithromax 250 mg Tablet] 500 mg PO DAILY #6 tablet 10/20/18 Prednisone [Deltasone 20 mg Tablet] 40 mg PO DAILY #10 tablet 04/12/18 History of Present Illness History of Present Illness: OLIVE BLANCA is a 67 year old female with medical history of bronchial asthma comes to the emergency department complaining of shortness of breath for the last 2 days. Apparently she has started with cold like symptoms follow with cough with mild yellowish sputum, progressive shortness of breath, wheezing, thoracic pleuritic chest pain. Denies any fever or chills. Tells me that her symptoms are not frequent and she ran out of her nebulizer treatments. Her primary care physician was called in the morning who gave her a prescription by 6 PM, her first nebulizer treatment was around 6 PM initially she was feeling a little bit better but an hour later started worsening and decided to come to the emergency department. She denies nausea, vomiting, abdominal pain, urinary symptoms or changes in her bowel movements. Initially patient was in respiratory distress, tachypneic, moderately hypoxic, unable to speak in full sentences. Patient was initiated on BiPAP but at the time of my evaluation she was comfortable on 2 L oxygen via nasal cannula. Currently saturating 94-96%. Still with moderate to severe wheezing, feels needs to stay in the hospital for further care. Chest x-ray negative for acute infiltrates. Hospital Course Hospital Course: She was started on some steroids and improved rather quickly. She still had some coarse breath sounds this morning but she was not wheezing anymore. She was able to sleep on room air and was able to stay on room air and talking complete sentences without stopping to catch her breath. Despite the fact that she really just wanted to stay here and not go home because she is having to stay with her daughter and her daughter's 4 dogs, she was medically ready for discharge. Her labs and examination were reassuring and she was discharged in good condition. Physical Exam Vital Signs: Temp Pulse Resp BP Pulse Ox 97.9 F 86 18 169/48 H 94 04/12/18 10:57 04/12/18 10:57 04/12/18 10:57 04/12/18 10:57 04/12/18 10:57 Intake & Output 04/11/18 04/12/18 04/13/18 06:59 06:59 06:59 Intake Total 1100 2302 Balance 1100 2302 Weight 135.2 kg General appearance: PRESENT: no acute distress, cooperative, morbidly obese Respiratory exam: PRESENT: unlabored, other - Breath sounds were coarse. ABSENT : accessory muscle use, rales, rhonchi, tachypnea, wheezes Cardiovascular exam: PRESENT: RRR, +S1, +S2. ABSENT: diastolic murmur, systolic murmur GI/Abdominal exam: PRESENT: normal bowel sounds, soft. ABSENT: guarding, rebound, tenderness Extremities exam: ABSENT: clubbing, pedal edema Musculoskeletal exam: PRESENT: normal inspection. ABSENT: deformity Neurological exam: PRESENT: alert, awake, oriented to person, oriented to place , oriented to time Results Impressions: Chest X-Ray 04/11/18 00:33 IMPRESSION: No acute process noted The mediastinum appears slightly widened as compared to the previous exam but this may be in part due to AP technique and tortuous vessels. Qualifiers - * PATIENT BEING DISCHARGED WITH ANY OF THE FOLLOWING DIAGNOSIS: No
== END 2018-04-12 13:14 | disposition home or self-care (01) | DRG 202 ==
LOC: ER 00:19 → EH 02:37 → OBSVTOIN 04:25 → 5 06:26
PROVIDERS: ADMIT Internal Medicine; ATTEND Internal Medicine
DX: J45.41 Moderate persistent asthma with (acute) exacerbation (principal); Z68.43 Body mass index [BMI] 50.0-59.9, adult; E11.8 Type 2 diabetes mellitus with unspecified complications; I10 Essential (primary) hypertension; E78.00 Pure hypercholesterolemia, unspecified; E66.01 Morbid (severe) obesity due to excess calories; Z87.891 Personal history of nicotine dependence; Z79.4 Long term (current) use of insulin; Z79.51 Long term (current) use of inhaled steroids; Z79.899 Other long term (current) drug therapy; Z79.52 Long term (current) use of systemic steroids
CPT/HCPCS: 36415; 71045; 80053; 82962; 83880; 84484; 85025; 94640; 94799; 96365; 96366; 96375; 99291; J0456; J1650; J1815; J2405; J2930; J3360; J3475; J3490; J7060; J7120; J7512; J7620

== ENCOUNTER 2018-07-10 00:45 | Emergency (ER) | payer MEDICARE ==
[2018-07-10 01:01] VITALS: BP 148/46
[2018-07-10] MEDS ORDERED: HYDROCODONE/ACETAMINOPHEN 10-325 MG TABLET PO ONE (03:41)
--- NOTE | 2018-07-10 04:58 | ER Document Report ---
HPI - HPI Patient complains to provider of: Bilateral lower leg pain. Time Seen by Provider: 07/10/18 03:12 Pain Level: 5 Context: Patient is a morbidly obese 67-year-old female presents to the emergency department complaining of generalized bilateral lower leg pain. Patient states on Saturday she was at the hairdresser and believes that she stepped wrong potentially twisting her right knee and inevitably hurting her left knee while trying to get in the hairdresser's chair. Patient states since that episode she has had continued increasing pain in bilateral knees radiating down to bilateral shins. Patient denies any calf pain bilaterally. Patient states she does have an extensive history of osteoarthritis and fibromyalgia. Patient states she has had intermittent pain in bilateral knees for the last couple of months but states she was unable to bare it this evening due to what she thinks was an injury on Saturday. Past medical history: Osteoarthritis, fibromyalgia, diabetes, COPD, hypertension Medications: Vicodin, tramadol, patient is unsure of any other medications Allergies: None Patient states the last time she took her Vicodin was this morning around 0700 hours. - MUSCULOSKELETAL Musculoskeletal: REPORTS: Extremity pain - rt knee Past Medical History - General Information source: Patient - Social History Smoking Status: Unknown if Ever Smoked Family History: CAD, DM, Hypertension Patient has suicidal ideation: No Patient has homicidal ideation: No - Past Medical History Cardiac Medical History: Reports: Hx Hypercholesterolemia, Hx Hypertension Pulmonary Medical History: Reports: Hx Asthma Endocrine Medical History: Reports: Hx Diabetes Mellitus Type 2 Renal/ Medical History: Denies: Hx Peritoneal Dialysis Musculoskeletal Medical History: Reports Hx Arthritis Psychiatric Medical History: Reports: Hx Depression Past Surgical History: Reports: Hx Cardiac Catheterization, Hx Orthopedic Surgery - bilat knee arthroplasty - Immunizations Hx Pneumococcal Vaccination: 06/24/09 Vertical Provider Document - CONSTITUTIONAL Agree With Documented VS: Yes Notes: GENERAL: Morbidly obese alert, interacts well. No acute distress. HEAD: Normocephalic, atraumatic. EYES: Pupils equal, round, and reactive to light. Extraocular movements intact. ENT: Oral mucosa moist, tongue midline. NECK: Full range of motion. Supple. Trachea midline. LUNGS: Clear to auscultation bilaterally, no wheezes, rales, or rhonchi. No respiratory distress. HEART: Regular rate and rhythm. No murmur ABDOMEN: Soft, non-tender. Non-distended. Bowel sounds present in all 4 quadrants. EXTREMITIES: Moves all 4 extremities spontaneously. normal radial and dorsalis pedis pulses bilaterally. Patient has extensive nonpitting edema to bilateral lower extremities. Patient does have well-healed scars from knee replacements on bilateral knees. Patient states she has pain on palpation anterior right k nee and medial left knee. Patient will not allow me to perform valgus or varus tests due to generalized pain. Patient states she has pain on palpation anterior shins bilaterally. No erythema or ecchymosis noted bilaterally. Patient denies any pain upon palpation bilateral calves flexing or extending of bilateral ankles. BACK: no cervical, thoracic, lumbar midline tenderness. No saddle anesthesia, normal distal neurovascular exam. NEUROLOGICAL: Alert and oriented x3. Normal speech. cranial nerves II through XII grossly intact PSYCH: Normal affect, normal mood. SKIN: Warm, dry, normal turgor. No rashes or lesions noted. - INFECTION CONTROL TRAVEL OUTSIDE OF THE [place] IN LAST 30 DAYS: No Course - Re-evaluation Re-evalutation: 07/10/18 05:16 Patient's x-rays revealed no signs of fracture, but did note bilateral knee effusions. Discussed this at length with patient at bedside. Discussed need to follow-up with orthopedics and inevitably get an MRI. Patient voices understanding and is stable for discharge. 07/10/18 05:18 Patient states at times she walks with a walker at home. Discussed rest at home until follow-up. Due to patient's morbid obesity knee immobilizers and crutches are unfortunately not an option at this time. - Vital Signs Vital signs: Temp Pulse Resp BP Pulse Ox 97.8 F 83 20 148/46 H 100 07/10/18 01:00 07/10/18 01:00 07/10/18 01:00 07/10/18 01:00 07/10/18 01:00 Discharge - Discharge Clinical Impression: Knee pain Qualifiers: Chronicity: chronic Laterality: bilateral Qualified Code(s): M25.561 - Pain in right knee Condition: Stable Disposition: HOME, SELF-CARE Instructions: Suspected Internal Knee Injury ([facility]), Knee Effusion ([facility]) Additional Instructions: As we discussed you have been seen and treated in the emergency department for bilateral knee pain. At this time your x-ray showed no signs of fractures. You should follow-up with your primary care provider notably orthopedics for an MRI. Please return to the emergency room for any other concerning symptom Referrals: EHSAN RIOS PA-C [Primary Care Provider] - Follow up as needed BLADE TENORIO MD [ACTIVE STAFF] - Follow up as needed
--- NOTE | 2018-07-10 05:04 | RADIOLOGY REPORT (SQ) ---
EXAM DESCRIPTION: XR KNEE 1-2 VIEWS BILATERAL, XR TIBIA FIBULA 2 VIEWS BILATERAL COMPLETED DATE/TME: 07/10/2018 03:41 CLINICAL HISTORY: 67 years Female, pain COMPARISON: None. Findings: Bilateral total knee arthroplasty without evidence of metal fracture or loosening.. Small bilateral superior patellar enthesophytes with chronic ossicular fragmentation on the right. Moderate to large bilateral Achilles tendinous enthesophytes, left more than right.. Atherosclerotic vascular disease. Small bilateral knee effusions. Bones, joints, and soft tissues of the XR KNEE 2 VIEWS BILATERAL, XR TIBIA FIBULA 2 VIEWS BILATERAL appear otherwise intact. IMPRESSION: Small bilateral knee effusions. Bilateral total knee arthroplasty.
== END 2018-07-10 05:30 | disposition home or self-care (01) ==
LOC: ER 00:45
DX: G89.29 Other chronic pain (principal); M25.561 Pain in right knee; M25.562 Pain in left knee; M79.605 Pain in left leg; M79.604 Pain in right leg; X50.0XXA Overexertion from strenuous movement or load, initial encounter; Y92.89 Other specified places as the place of occurrence of the external cause; E78.00 Pure hypercholesterolemia, unspecified; I10 Essential (primary) hypertension; E11.9 Type 2 diabetes mellitus without complications; E66.01 Morbid (severe) obesity due to excess calories
CPT/HCPCS: 99283; 73560; 73590; A9270

== ENCOUNTER 2019-01-08 07:41 | Emergency (ER) | payer MEDICARE ==
--- NOTE | 2019-01-08 08:08 | ER Document Report ---
HPI - HPI Patient complains to provider of: fall, abrasion, left knee pain Time Seen by Provider: 01/08/19 08:03 Onset: Just prior to arrival Onset/Duration: Sudden Quality of pain: Achy Severity: Mild Context: 68-year-old female with listed past medical history who takes Eliquis for a remote stroke and A. fib here after a accidental mechanical fall where she tripped over her shoes and hit her head on the back of the couch prior to arrival. She denies any LOC. No vomiting. She did not lay on the ground long. She complains of pain over her right forehead where she has a hematoma, bilat neck pain, and bilateral knee pain. She does have a history of bilateral knee replacements. No change in neurologic. No painful EOMs. No vision changes. No preceding fall symptoms. No neck surgeries. No other blood thinners. She is able to walk. No seizure-like activity or altered mental status. She states her sugars run well. accuheck was 150s when ems got to her house. her bp is a little elevated. she denies any htn sx. no photophobia. no dizziness. He states she would like some Tylenol for pain. Her last tetanus was more than 5 years ago. She was brought in by EMS. She denies pain anywhere else. she denies intoxication. No other recent head injuries. She denies any other complaints at this time. Similar symptoms previously: No Recently seen / treated by doctor: No - ROS Systems Reviewed and Negative: Yes All other systems reviewed and negative - Unless mentioned in HPI, to include 10 Past Medical History - General Information source: Patient, Emergency Med Personnel - Social History Smoking Status: Unknown if Ever Smoked Frequency of alcohol use: None Drug Abuse: None Lives with: Family Family History: CAD, DM, Hypertension Patient has suicidal ideation: No Patient has homicidal ideation: No - Past Medical History Cardiac Medical History: Reports: Hx Atrial Fibrillation, Hx Hypercholesterolemia, Hx Hypertension Pulmonary Medical History: Reports: Hx Asthma Neurological Medical History: Reports: Hx Cerebrovascular Accident - jun 2018 Endocrine Medical History: Reports: Hx Diabetes Mellitus Type 2, Hx Hypothyroidism Renal/ Medical History: Denies: Hx Peritoneal Dialysis Musculoskeletal Medical History: Reports Hx Arthritis, Reports Other - arthritis Other: iron deficiency anemia , allergic rhinitis Psychiatric Medical History: Reports: Hx Anxiety, Hx Depression Past Surgical History: Reports: Hx Cardiac Catheterization, Hx Orthopedic Surgery - bilat knee replacements remotely - Immunizations Hx Pneumococcal Vaccination: 06/24/09 Vertical Provider Document - CONSTITUTIONAL Notes: GENERAL_APPEARANCE: well_nourished, alert, cooperative, mild obvious discomfort. Pleasant, obese, elderly, white female, smiling, speaking in full sentences, in no sign of pain or resp distress, easily sitting up. No one is with her VITALS: reviewed, see vital signs table. HEAD: There is an approximately 4 cm hematoma does tender to palpate over the right superior lateral orbital rim however no crepitation. No painful EOMs. There is also some ecchymosis and edema in the right upper eyelid. No active bleeding. Nothing amenable to suture repair. Otherwise normocephalic and atraumatic, no raccoon eyes, no nelson signs. no swelling or ttp. EARS: canals_clear_bilat, TMs_clear, no_discharge_from_ears. no hemotympanum EYES: EOMI without pain, conjunctiva_clear. PERRL, eyelids wnl. no drainage. no ttp or crepitation of the orbits unless otherwise noted. no sign of orbital/periorbital cellulitis. no hyphema. No subconjunctival hemorrhage. No drainage. MOUTH: no_lacerations inside_mouth. no broken teeth. no tmj clicking or ttp. pharynx wnl. tongue protrudes midline. no drooling, tripoding, voice change, or stridor, no thrush or oral lesions. no tongue or lip swelling. NOSE: no drainage or epistaxis NECK: no_swelling on the neck. no midline bony tenderness however there is tender to palpation of the bilateral paracervical musculature. Spasm noted. Palpation here reproduces patient's pain exactly. no step offs or deformities. full rom. full strength. no meningeal signs. no sign of central cord syndrome. HEART: normal_rate, normal_rhythm, LUNGS: ctab. no chest wall ttp. no overlying skin changes. no flail chest or crepitation. ABDOMEN: normal_BS, soft, no_abd_tenderness, no rebound, guarding, distension, or peritoneal signs. no cva ttp. no overlying skin changes. BACK: no midline bony tenderness. no step offs or deformities RECTAL: deferred, however, no sign of loss of bowel or bladder or soiling of clothing. EXTREMITIES: strength 5/5 in all_extremities, good pulses all_extremities, no_abrasions\lacerations in the extremities, no_swelling\tenderness in the extremities other than chronic nonpitting bilateral lower extremity lymphedema that the patient states is unchanged. She has well-healed vertical midline scars on bilateral knees from prior knee replacements. There is mild tenderness to palpation of the anterior knees however exam is limited secondary to patient's body habitus. Not able to perform any further knee exams other than flexion extension secondary to the patient's chronic moderate lymphedema. She is able to fully flex and extend her knees and weight-bear however. There is no sign of septic joint or gout. full rom. normal gait. 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 no shortening or rotation of the limbs or other signs of deformities unless otherwise noted. SKIN: warm, dry, good_color. no other grossly visible overlying skin changes or signs of trauma unless otherwise noted. NEURO: cranial nerves 2 - 12 intact, motor_intact, sensory_intact. cerebellar function intact GLASCOW_COMA_SCORE: (adult) - eyes_open_spontaneously_4, verbal_converses_and_oriented_5, motor_obeys_commands_6, glasgow_coma_total_15, MENTAL_STATUS: speech_clear, oriented_X_3, responds_appropriately to questions. - INFECTION CONTROL TRAVEL OUTSIDE OF THE [place] IN LAST 30 DAYS: No Course - Re-evaluation Re-evalutation: 01/08/19 09:55 Patient here after accidental mechanical fall with a closed head injury without LOC. She does have a right frontal hematoma with mild abrasion. She is on Eliquis. She has some mild neck pain and bilateral knee pain as well. Her CT head, CT neck, CT face and bilateral knee x-rays were all negative for any acute per radiology and reviewed by myself. Patient informed of her findings. Her tetanus was updated. She improved with Tylenol here. advised to continue to take her medications as prescribed. Advised of second hit syndrome and to avoid any activity where she could hit her head again until cleared by her PCP. Follow-up with PCP in 1 to 2 days. Return for any worsening symptoms. Patient understands agrees to plan. Vital signs stable. Neuro nonfocal. ice to the area. wound care adivsed. no sign of central cord syndrome, spinal cord involvement, or cauda equina. Patient's blood pressure was little elevated here today however she denies any hypertension symptoms. Advised to take her blood pressure medication as prescribed. Advised to follow-up with her PCP for blood pressure recheck and to keep a log of her blood pressures to take her PCP as she may need her medications adjusted. On reexam, pt improved with tx listed. remained stable. nontoxic. well appearing. pain controlled. tolerating po. requesting to go home. Documentation achieved through voice recording which my lead to some occasional accidental typographical errors. Extensive efforts have been made to proof read documentation to make sure these are the least as possible. Category Date Time Status Vital Signs (ED) DISCHARGE Care 01/08/19 09:[address] CERVICAL SPINE WITHOUT [CT] Stat Exams 01/08/19 08:[address] FACIAL AREA WITHOUT [CT] Stat Exams 01/08/19 08:[address] HEAD WITHOUT [CT] Stat Exams 01/08/19 08:25 Ordered KNEE BILATERAL 1-2 VIEWS [RAD] Stat Exams 01/08/19 08:26 Ordered Acetaminophen [Tylenol 325 mg Tablet] Med 01/08/19 08:27 Once 975 mg PO NOW ONE Diph,Pertuss(Acell),Tet Vac/Pf [Boostrix Vaccine 0.5 ml Med 01/08/19 08:26 Once Syringe] 0.5 ml IM NOW ONE 01/08/19 10:08 01/08/19 10:10 - Vital Signs Vital signs: 01/08/19 09:54 Temp Pulse Resp BP Pulse Ox 98 F 56 L 16 178/65 H 99 01/08/19 07:50 01/08/19 07:50 01/08/19 07:50 01/08/19 07:50 01/08/19 07:50 01/08/19 10:09 Temp Pulse Resp BP Pulse Ox 01/08/19 10:06 97.9 F 60 16 162/60 H 100 01/08/19 07:50 98 F 56 L 16 178/65 H 99 - Diagnostic Test Radiology reviewed: Image reviewed, Reports reviewed Radiology results interpreted by me: 01/08/19 09:[address] 01/08/19 08:25 IMPRESSION: No fracture or static subluxation of the cervical spine. Head CT 01/08/19 08:25 IMPRESSION: 1. No acute intracranial pathology. 2. No fracture or dislocation of the facial bones. EVIDENCE OF ACUTE STROKE: NO. Facial Bones CT 01/08/19 08:26 IMPRESSION: 1. No acute intracranial pathology. 2. No fracture or dislocation of the facial bones. EVIDENCE OF ACUTE STROKE: NO. Knee X-Ray 01/08/19 08:26 IMPRESSION: No fracture dislocation of the bilateral knees. Status post bilateral knee total arthroplasty. No evidence of perihardware fracture. Discharge - Discharge Clinical Impression: Anticoagulated by anticoagulation treatment, Need for Tdap vaccination, Elevated blood pressure reading Closed head injury without loss of consciousness Qualifiers: Encounter type: initial encounter Qualified Code(s): S09.90XA - Unspecified injury of head, initial encounter Traumatic hematoma of forehead Qualifiers: Encounter type: initial encounter Qualified Code(s): S00.83XA - Contusion of other part of head, initial encounter Forehead abrasion Qualifiers: Encounter type: initial encounter Qualified Code(s): S00.81XA - Abrasion of other part of head, initial encounter Cervical strain, acute Qualifiers: Encounter type: initial encounter Qualified Code(s): S16.1XXA - Strain of muscle, fascia and tendon at neck level, initial encounter Bilateral knee pain Qualifiers: Chronicity: acute Qualified Code(s): M25.561 - Pain in right knee; M25.562 - Pain in left knee Accidental fall Qualifiers: Encounter type: initial encounter Qualified Code(s): W19.XXXA - Unspecified fall, initial encounter Condition: Good Disposition: HOME, SELF-CARE Instructions: Head Injury Precautions ([facility]), High Blood Pressure ([facility]), Sprained Knee ([facility]), Neck Injury (Cervical Strain) ([facility]) Additional Instructions: Follow-up with PCP 1 to 2 days. Return for any worsening symptoms. Ice to the area. Wound care as discussed. Continue to take your medications as prescribed. Your blood pressure was a little elevated here today. Continue to take your blood pressure medication as prescribed and keep a log of your blood pressures to take to your PCP for recheck as your medications may need to be adjusted. Avoid any activity where you could hit your head again until cleared by your PCP as discussed. Tylenol as needed for any pain. Referrals: BLANCA,EHSAN M, PA-C [Primary Care Provider] - Follow up as needed
[2019-01-08] MEDS ORDERED: DIPH/PERTUSS(ACELL)/TETANUS VAC/PF 0.5 ML SYR (>=10YO) IM ONE (08:26)
[2019-01-08] MEDS ORDERED: ACETAMINOPHEN 325 MG TABLET PO ONE (08:27)
--- NOTE | 2019-01-08 09:10 | RADIOLOGY REPORT (SQ) ---
EXAM DESCRIPTION: CT HEAD WITHOUT; CT FACIAL AREA WITHOUT COMPLETED DATE/TIME: 01/08/2019 8:51 am REASON FOR STUDY: fall, closed head injury, on eliquis COMPARISON: None. TECHNIQUE: Axial images acquired through the brain and facial bones without intravenous contrast. I mages reviewed with bone, brain and subdural windows. Additional sagittal and coronal reconstruction s were generated. Images stored on PACS. All CT scanners at this facility use dose modulation, iterative reconstruction, and/or weight based d osing when appropriate to reduce radiation dose to as low as reasonably achievable (ALARA). [facility]: Dose Right [facility]: CareDose [facility]: Dose Right [facility]: Teradose 4D [facility]: Smart [employer] RADIATION DOSE: CT Rad equipment meets quality standard of care and radiation dose reduction techniq ues were employed. CTDIvol: 53.2 mGy. DLP: 991 mGy-cm.; CT Rad equipment meets quality standard of ca re and radiation dose reduction techniques were employed. CTDIvol: 30.4 mGy. DLP: 570 mGy-cm. mGy. LIMITATIONS: None. FINDINGS: VENTRICLES: Normal size and contour. CEREBRUM: No masses. No hemorrhage. No midline shift. No evidence for acute infarction. Normal gra y/white matter differentiation. No areas of low density in the white matter. CEREBELLUM: No masses. No hemorrhage. No alteration of density. No evidence for acute infarction. EXTRAAXIAL SPACES: No fluid collections. No masses. ORBITS AND GLOBE: No intra- or extraconal masses. Normal contour of globe without masses. CALVARIUM: No fracture. FACIAL BONES: No fracture or dislocation of the facial bones. PARANASAL SINUSES: No fluid or mucosal thickening. SOFT TISSUES: No mass or hematoma. OTHER: No other significant finding. IMPRESSION: 1. No acute intracranial pathology. 2. No fracture or dislocation of the facial bones. EVIDENCE OF ACUTE STROKE: NO. COMMENT: Quality ID # [id number]: Final reports with documentation of one or more dose reduction techniques (e.g., Automated exposure control, adjustment of the mA and/or kV according to patient size, use of iterative reconstruction technique) TECHNICAL DOCUMENTATION: JOB ID: [id number] [employer]- All Rights Reserved Reading location - IP/workstation name: [email or web address]
--- NOTE | 2019-01-08 09:10 | RADIOLOGY REPORT (SQ) ---
EXAM DESCRIPTION: CT HEAD WITHOUT; CT FACIAL AREA WITHOUT COMPLETED DATE/TIME: 01/08/2019 8:51 am REASON FOR STUDY: fall, closed head injury, on eliquis COMPARISON: None. TECHNIQUE: Axial images acquired through the brain and facial bones without intravenous contrast. I mages reviewed with bone, brain and subdural windows. Additional sagittal and coronal reconstruction s were generated. Images stored on PACS. All CT scanners at this facility use dose modulation, iterative reconstruction, and/or weight based d osing when appropriate to reduce radiation dose to as low as reasonably achievable (ALARA). [facility]: Dose Right [facility]: CareDose [facility]: Dose Right [facility]: Teradose 4D [facility]: Smart [employer] RADIATION DOSE: CT Rad equipment meets quality standard of care and radiation dose reduction techniq ues were employed. CTDIvol: 53.2 mGy. DLP: 991 mGy-cm.; CT Rad equipment meets quality standard of ca re and radiation dose reduction techniques were employed. CTDIvol: 30.4 mGy. DLP: 570 mGy-cm. mGy. LIMITATIONS: None. FINDINGS: VENTRICLES: Normal size and contour. CEREBRUM: No masses. No hemorrhage. No midline shift. No evidence for acute infarction. Normal gra y/white matter differentiation. No areas of low density in the white matter. CEREBELLUM: No masses. No hemorrhage. No alteration of density. No evidence for acute infarction. EXTRAAXIAL SPACES: No fluid collections. No masses. ORBITS AND GLOBE: No intra- or extraconal masses. Normal contour of globe without masses. CALVARIUM: No fracture. FACIAL BONES: No fracture or dislocation of the facial bones. PARANASAL SINUSES: No fluid or mucosal thickening. SOFT TISSUES: No mass or hematoma. OTHER: No other significant finding. IMPRESSION: 1. No acute intracranial pathology. 2. No fracture or dislocation of the facial bones. EVIDENCE OF ACUTE STROKE: NO. COMMENT: Quality ID # [id number]: Final reports with documentation of one or more dose reduction techniques (e.g., Automated exposure control, adjustment of the mA and/or kV according to patient size, use of iterative reconstruction technique) TECHNICAL DOCUMENTATION: JOB ID: [id number] [employer]- All Rights Reserved Reading location - IP/workstation name: [email or web address]
--- NOTE | 2019-01-08 09:17 | RADIOLOGY REPORT (SQ) ---
EXAM DESCRIPTION: CT CERVICAL SPINE WITHOUT COMPLETED DATE/TIME: 01/08/2019 8:51 am REASON FOR STUDY: fall, closed head injury, on eliquis COMPARISON: None. TECHNIQUE: Axial images acquired through the cervical spine without intravenous contrast. Images re viewed with lung, soft tissue and bone windows. Reconstructed coronal and sagittal MPR images review ed. Images stored on PACS. All CT scanners at this facility use dose modulation, iterative reconstruction, and/or weight based d osing when appropriate to reduce radiation dose to as low as reasonably achievable (ALARA). [facility]: Dose Right [facility]: CareDose [facility]: Dose Right [facility]: Teradose 4D [facility]: [employer] RADIATION DOSE: CT Rad equipment meets quality standard of care and radiation dose reduction techniq ues were employed. CTDIvol: 20.1 mGy. DLP: 391 mGy-cm. mGy. LIMITATIONS: None. FINDINGS: ALIGNMENT: Anatomic. MINERALIZATION: Normal. VERTEBRAL BODIES: No fractures or dislocation. DISCS: Generally mild multilevel disc degenerative disease and osteophytosis. 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 FACETS, LATERAL MASSES, POSTERIOR ELEMENTS: No fractures. No dislocation. No acute findings. HARDWARE: None in the spine. VISUALIZED RIBS: No fractures. LUNG APICES AND SOFT TISSUES: No significant or acute findings. OTHER: No other significant finding. IMPRESSION: No fracture or static subluxation of the cervical spine. TECHNICAL DOCUMENTATION: JOB ID: [id number] Quality ID # [id number]: Final reports with documentation of one or more dose reduction techniques (e.g., Au tomated exposure control, adjustment of the mA and/or kV according to patient size, use of iterative reconstruction technique) 2010 [employer]- All Rights Reserved Reading location - IP/workstation name: [email or web address]
--- NOTE | 2019-01-08 09:20 | RADIOLOGY REPORT (SQ) ---
EXAM DESCRIPTION: KNEE BILATERAL 1-2 VIEWS COMPLETED DATE/TIME: 01/08/2019 9:01 am REASON FOR STUDY: fall, hx of bilat knee replacements COMPARISON: 07/10/2018 NUMBER OF VIEWS: Two views. TECHNIQUE: AP and lateral radiographic images acquired of the bilateral knees. LIMITATIONS: None. FINDINGS: MINERALIZATION: Normal. BONES: No acute fracture or dislocation. No worrisome bone lesions. No significant osteophytes. JOINT: No effusion. Status post bilateral total knee arthroplasty. OTHER: No other significant finding. IMPRESSION: No fracture dislocation of the bilateral knees. Status post bilateral knee total arthro plasty. No evidence of perihardware fracture. TECHNICAL DOCUMENTATION: JOB ID: [id number] [employer]- All Rights Reserved Reading location - IP/workstation name: [email or web address]
[2019-01-08 10:07] VITALS: BP 162/60
== END 2019-01-08 10:36 | disposition home or self-care (01) ==
LOC: ER 07:41
DX: Z23 Encounter for immunization (principal); S09.90XA Unspecified injury of head, initial encounter; S00.83XA Contusion of other part of head, initial encounter; S00.81XA Abrasion of other part of head, initial encounter; S16.1XXA Strain of muscle, fascia and tendon at neck level, initial encounter; M25.562 Pain in left knee; R51 Headache; M54.2 Cervicalgia; M25.561 Pain in right knee; R03.0 Elevated blood-pressure reading, without diagnosis of hypertension; W01.0XXA Fall on same level from slipping, tripping and stumbling without subsequent striking against object, initial encounter; I48.91 Unspecified atrial fibrillation; Z86.73 Personal history of transient ischemic attack (TIA), and cerebral infarction without residual deficits; Z79.01 Long term (current) use of anticoagulants; Z96.653 Presence of artificial knee joint, bilateral; I10 Essential (primary) hypertension; E11.9 Type 2 diabetes mellitus without complications
CPT/HCPCS: 99284; 90471; 73560; 70450; 70486; 72125; 90715; A9270

== ENCOUNTER 2019-08-06 13:57 | Inpatient (IN) | payer MEDICARE ==
--- NOTE | 2019-08-06 15:38 | RADIOLOGY REPORT (SQ) ---
EXAM DESCRIPTION: CHEST SINGLE VIEW COMPLETED DATE/TIME: 08/06/2019 2:31 pm REASON FOR STUDY: sob COMPARISON: 04/11/2018 EXAM PARAMETERS: NUMBER OF VIEWS: One view. TECHNIQUE: Single frontal radiographic view of the chest acquired. RADIATION DOSE: NA LIMITATIONS: None. FINDINGS: LUNGS AND PLEURA: There is small area of increased opacification in the left mid lung. Th ere is increased opacification the medial right base. MEDIASTINUM AND HILAR STRUCTURES: No masses. Contour normal. HEART AND VASCULAR STRUCTURES: Heart normal in size. Normal vasculature. BONES: No acute findings. HARDWARE: None in the chest. OTHER: No other significant finding. IMPRESSION: Multicentric pneumonia. TECHNICAL DOCUMENTATION: JOB ID: [id number] 2010 [employer]- All Rights Reserved Reading location - IP/workstation name: [email or web address]
[2019-08-06 17:51] LABS: HEMATOCRIT 31.7 % (36.0-47.0); HEMOGLOBIN 10.5 g/dL (12.0-15.5); MEAN CORPUSCULAR HEMOGLOBIN 31.1 pg (27.0-33.4); MEAN CORPUSCULAR VOLUME 94 fl (80-97); PLATELET COUNT 394 10^3/uL (150-450); RED BLOOD COUNT 3.36 10^6/uL (3.72-5.28); RED CELL DISTRIBUTION WIDTH 15.1 % (11.5-14.0); WHITE BLOOD COUNT 18.9 10^3/uL (4.0-10.5)
[2019-08-06 18:11] LABS: ALBUMIN 2.9 g/dL (3.5-5.0); ALKALINE PHOSPHATASE 91 U/L (38-126); ANION GAP 11 (5-19); ASPARTATE AMINO TRANSFERASE 12 U/L (14-36); BILIRUBIN,DIRECT 0.1 mg/dL (0.0-0.4); BILIRUBIN,TOTAL 0.3 mg/dL (0.2-1.3); BLOOD UREA NITROGEN 49 mg/dL (7-20); CALCIUM 9.3 mg/dL (8.4-10.2); CARBON DIOXIDE 24 mmol/L (22-30); CHLORIDE 101 mmol/L (98-107); CREATINE KINASE 32 U/L (30-135); GLUCOSE 160 mg/dL (75-110); POTASSIUM 4.7 mmol/L (3.6-5.0); TOTAL PROTEIN 6.1 g/dL (6.3-8.2)
[2019-08-06 18:20] LABS: ABSOLUTE LYMPHOCYTES# (MANUAL) 1.9 10^3/uL (0.5-4.7); ABSOLUTE MONOCYTES # (MANUAL) 1.5 10^3/uL (0.1-1.4); BAND NEUTROPHILS % (MANUAL) 1 % (3-5); BASOPHILS % (MANUAL) 0 % (0-2); EOSINOPHILS % (MANUAL) 0 % (0-6); LYMPHOCYTES % (MANUAL) 10 % (13-45); MONOCYTES % (MANUAL) 8 % (3-13); SEGMENTED NEUTROPHILS % (MAN) 81 % (42-78); TOTAL CELLS COUNTED 100
[2019-08-06 18:21] LABS: ANISOCYTOSIS SLIGHT; PLATELET COMMENT ADEQUATE; POLYCHROMASIA SLIGHT
[2019-08-06 18:23] LABS: CREATINE KINASE MB 0.42 ng/mL (<4.55); TROPONIN I < 0.012 ng/mL
[2019-08-06 19:36] LABS: APPEARANCE,URINE SLIGHTLY-CLOUDY; BILIRUBIN,URINE NEGATIVE (NEGATIVE); COLOR,URINE YELLOW; GLUCOSE, URINE NEGATIVE (NEGATIVE); KETONES,URINE NEGATIVE (NEGATIVE); LEUKOCYTE ESTERASE,URINE MODERATE (NEGATIVE); NITRITE,URINE NEGATIVE (NEGATIVE); PROTEIN,URINE >=500 mg/dL (NEGATIVE); URINE SPECIFIC GRAVITY 1.019; UROBILINOGEN,URINE NEGATIVE mg/dL (<2.0)
--- NOTE | 2019-08-06 21:34 | ER Document Report ---
ED General - General Chief Complaint: Shortness Of Breath Stated Complaint: SHORTNESS OF BREATH Time Seen by Provider: 08/06/19 19:55 Primary Care Provider: EHSAN RIOS PA-C [Primary Care Provider] - Follow up as needed Notes: 69-year-old female presents emergency department complaining that she has had cold symptoms since May but has been having progressively worsening shortness of breath since July 02. Patient states that on July 02 she was seen in urgent care and diagnosed with pneumonia however she was then told to go to the ER and she was seen at [facility] where they told her chest x-ray is negative and he prescribed prednisone and doxycycline. Patient states that that caused some mild improvement after a 5-day course but she has been getting progressively worse since then. Over the past several days she has had significantly decreased exercise tolerance and difficulty even walking to her bathroom, increasing shortness of breath, increasing chest pain with cough and a cough that is productive of green sputum. T-max is 101.7. Patient admits to history of frequent recurrent pneumonia, COPD and CHF. TRAVEL OUTSIDE OF THE [place] IN LAST 30 DAYS: No - Related Data Allergies/Adverse Reactions: No Known Allergies Allergy (Verified 05/18/17 06:14) Past Medical History - General Information source: Patient - Social History Smoking Status: Never Smoker Chew tobacco use (# tins/day): No Frequency of alcohol use: None Drug Abuse: None Family History: CAD, DM, Hypertension Patient has suicidal ideation: No Patient has homicidal ideation: No - Past Medical History Cardiac Medical History: Reports: Hx Atrial Fibrillation, Hx Congestive Heart Failure, Hx Hypercholesterolemia, Hx Hypertension Pulmonary Medical History: Reports: Hx Asthma, Hx COPD Neurological Medical History: Reports: Hx Cerebrovascular Accident - jun 2018 Endocrine Medical History: Reports: Hx Diabetes Mellitus Type 2, Hx Hypothyroidism Renal/ Medical History: Denies: Hx Peritoneal Dialysis Musculoskeletal Medical History: Reports Hx Arthritis Psychiatric Medical History: Reports: Hx Anxiety, Hx Depression Past Surgical History: Reports: Hx Cardiac Catheterization, Hx Orthopedic Surgery - bilat knee replacements remotely - Immunizations Hx Pneumococcal Vaccination: 06/24/09 Review of Systems - Review of Systems Constitutional: See HPI, Chills, Fever, Weakness EENT: Nose congestion, Nose discharge. denies: Throat pain Cardiovascular: See HPI, Chest pain Respiratory: See HPI, Cough, Hurts to breathe, Short of breath Gastrointestinal: No symptoms reported -: Yes All other systems reviewed and negative Physical Exam - Vital signs Vitals: Resp Pulse Ox 14 99 08/06/19 14:20 08/06/19 14:20 - Notes Notes: GENERAL: Alert, anxious, answers questions well, appears moderately short of breath. Obese. HEAD: Normocephalic, atraumatic EYES: Pupils equal, round and reactive to light, extraocular movements intact. ENT: Oral mucosa moist, tongue midline. NECK: Full range of motion, supple, trachea midline. LUNGS: Expiratory wheezing in the right lower lobe, inspiratory rhonchi right lower lobe and left mid lung zone, tachypneic when talking, appears short of breath, is 98% on room air sitting in the bed. Frequent wet cough. HEART: Regular rate and rhythm, no murmurs, gallops, rubs. ABDOMEN: Soft, nontender, nondistended, bowel sounds present in all 4 quadrants. EXTREMITIES: Moves all 4 extremities spontaneously, trace to maybe 1+ pitting edema, radial and dorsalis pedis pulses 2/4 bilaterally. No cyanosis. NEUROLOGICAL: Alert and oriented x3, normal speech, no facial droop. PSYCH: Mildly anxious. SKIN: Warm, Dry. Course - Re-evaluation Re-evalutation: 08/06/19 22:08 CBC shows leukocytosis of 18.9, anemia with hemoglobin 10.5, platelets normal, CMP shows some acute renal failure with a BUN of 49 and creatinine of 1.95, mild hyponatremia, troponin negative, proBNP pending, urinalysis shows moderate leukocyte esterase, 35 WBCs, this will be sent for culture as she has no urinary symptoms. 08/06/19 22:08 Chest X-Ray 08/06/19 14:11 IMPRESSION: Multicentric pneumonia. Bilateral pneumonia is noted. Started on Rocephin and azithromycin. When patient ambulates her oxygen saturation goes down to 86% after a fairly short distance and she becomes tachypneic and feels lightheaded like she may pass out. 08/06/19 22:09 Patient's nurse let me know that the daughter would like to leave now and take her mother to [facility] to be admitted. I then went in the room to talk to the patient's daughter. Patient's daughter states that she wished her mother had never come to this hospital at all, states she does not trust this hospital at all and she would like to be immediately discharged to take her mother to [facility]. Discussed with daughter and patient that while the patient is stable for transport via private vehicle as she is not hypoxic at rest I would prefer to call [facility] to try and arrange a patient requested transfer. Family and patient are agreeable to this plan. Discussed with [facility] transfer center who stated that they are on regional management and if the patient wants to be admitted there that the fastest way for that to happen would be for them to leave the hospital AGAINST MEDICAL ADVICE and present directly to [facility]'s emergency department. I did discuss the case with Dr. Riggins fails the ER physician at [facility] to give them background on the case in case the patient shows up and we did push the films to [facility] using power chair as well. I then went back into the room and discussed with the patient and her daughter that they would not be able to be transferred this evening as [facility] is on regional management and she cannot even be added to the wait list at this time. Discussed with the family that while I certainly cannot stop them from leaving I would strongly recommend that they accept IV antibiotics and blood cultures here before she is transferred and again offered admission to this hospital until a bed became available at [facility]. At this time the patient stated that she is fine with staying here as long as she feels like she is getting treatment and making progress. Patient is agreeable to me calling the hospitalist to discuss admission and to being admitted here while reserving the right to request transfer to [facility] at any time. At this time I am waiting a phone call back from Dr. Sanchez. 08/06/19 22:18 Curb 65 score makes her moderate risk. Discussed with Dr. Sanchez, agrees to admit this patient to the telemetry care unit. Patient and daughter have been made aware that there may be a wait for a bed but treatment will continue in the emergency department while we wait for a bed upstairs. - Vital Signs Vital signs: Temp Pulse Resp BP Pulse Ox 18 171/63 H 100 08/06/19 15:01 08/06/19 15:01 08/06/19 15:01 - Laboratory Result Diagrams: 08/06/19 17:00 08/06/19 17:00 Laboratory results interpreted by me: 0208/06/19 08/06/19 17:00 17:00 19:20 WBC 18.9 H RBC 3.36 L Hgb 10.5 L Hct 31.7 L RDW 15.1 H Seg Neuts % (Manual) 81 H Band Neutrophils % 1 L Lymphocytes % (Manual) 10 L Abs Neuts (Manual) 15.5 H Abs Monocytes (Manual) 1.5 H Sodium 136.1 L BUN 49 H Creatinine 1.95 H Est GFR ( Amer) 31 L Est GFR (MDRD) Non-Af 25 L Glucose 160 H AST 12 L Total Protein 6.1 L Albumin 2.9 L Urine Protein >=500 H Ur Leukocyte Esterase MODERATE H - EKG Interpretation by Me Additional EKG results interpreted by me: 08/06/19 22:13 EKG shows sinus rhythm at a rate of 76, normal axis, interventricular conduction delay, no ST segment elevations or depressions, no T wave inversions per my interpretation. Discharge - Discharge Clinical Impression: Diabetes mellitus type 2 in obese, Morbid obesity Bilateral pneumonia Qualifiers: Pneumonia type: due to unspecified organism Lung location: upper lobe of lung Qualified Code(s): J18.9 - Pneumonia, unspecified organism Condition: Fair Disposition: ADMITTED INPATIENT Admitting Provider: Daniel (Hospitalist) Unit Admitted: Telemetry Referrals: EHSAN RISO PA-C [Primary Care Provider] - Follow up as needed
[2019-08-06] MEDS ORDERED: AZITHROMYCIN INJ 500 MG VIAL IV ONE (21:49)
[2019-08-06] MEDS ORDERED: CEFTRIAXONE 1 GM/D5W RTU 1 GM/50 ML RTUPB IV ONE (21:49)
[2019-08-06] MEDS ORDERED: ALBUTEROL SULFATE 0.083% NEB 2.5 MG/3 ML AMPUL NEB ONE (22:05)
[2019-08-06] MEDS ORDERED: DEXTROSE 50%-WATER 25 GM/50 ML DISP.SYRIN IV PRN ×2 (22:21)
[2019-08-06] MEDS ORDERED: GUAIFENESIN SYRP 200 MG/10 ML UDC PO PRN (22:21)
[2019-08-06] MEDS ORDERED: IPRATROPIUM/ALBUTEROL 0.5-2.5 MG/3 ML AMPUL NEB PRN (22:21)
[2019-08-06] MEDS ORDERED: DEXTROSE 40% GEL 15 GM TUBE PO PRN ×2 (22:21)
[2019-08-06] MEDS ORDERED: GLUCAGON,HUMAN RECOMB 1 MG INJ IM PRN (22:21)
[2019-08-06] MEDS ORDERED: HYDRALAZINE HCL INJ/PF 20 MG/1 ML SDV IV PRN (22:24)
[2019-08-06] MEDS ORDERED: NORMAL SALINE 1000 ML 1,000 ML IV PRN (22:30)
[2019-08-06] MEDS ORDERED: INSULIN NPH (ISOPHANE), HUMAN 100 UNIT/ML 3 ML SUBCUT ONE (23:00)
[2019-08-06] MEDS ORDERED: AMLODIPINE BESYLATE 10 MG TABLET PO ONE (23:00)
[2019-08-06] MEDS ORDERED: FLUTICASONE NASAL SPRAY 50 MCG/SPRY 120 SPRAY/16 GM NASL ONE (23:15)
--- NOTE | 2019-08-06 23:27 | EKG REPORT ---
SEVERITY:- ABNORMAL ECG - SINUS RHYTHM RIGHT AXIS DEVIATION NONSPECIFIC INTRAVENTRICULAR CONDUCTION DELAY : Confirmed by: Gonzales Ornelas MD 06-Aug-2019 23:26:48
[2019-08-07] MEDS: IPRATROPIUM/ALBUTEROL 0.5-2.5 MG/3 ML AMPUL NEB SCH ×3 (00:34→17:23)
[2019-08-07] MEDS ORDERED: AZITHROMYCIN INJ 500 MG VIAL IV ONE (00:53)
[2019-08-07] MEDS ORDERED: FLUTICASONE NASAL SPRAY 50 MCG/SPRY 120 SPRAY/16 GM ONE (01:54)
[2019-08-07] MEDS ORDERED: APIXABAN 5 MG TABLET PO ONE (05:00)
--- NOTE | 2019-08-07 05:18 | PDOC H&P ---
History of Present Illness Admission Date/PCP: 08/06/19 22:27 EHSAN RIOS PA-C Patient complains of: Shortness of breath History of Present Illness: OLIVE BLANCA is a 69 year old female with a past medical history of diabetes, hypertension, anxiety, depression, morbid obesity, osteoarthritis, congestive heart failure, and atrial fibrillation. She presents with 2 months of waxing and waning shortness of breath diagnosed with upper respiratory infection c ompleting a regimen of doxycycline and prednisone with short-lived improvement she returns with following a fever reported as 101.7. In the emergency department she is short of breath with retractions and +2 lower extremity edema. Systolic hypertension in the 180s and A. fib in the low 100s. She denies chest pain nausea or vomiting she admits to rhinorrhea, postnasal drip, nonproductive cough she also admits to feeling generally unwell for a extended period and subsequent discontinuation of several of her medications. Her work-up reveals a chest x-ray reveals multilobar pneumonia, leukocytosis, BNP of greater than 2000 and anemia. She started on empiric antibiotics, supplemental oxygen and referred to the hospitalist for admission. Past Medical History Cardiac Medical History: Reports: Atrial Fibrillation, Congestive Heart Failure, Hyperlipidema, Hypertension Pulmonary Medical History: Reports: Asthma, Chronic Obstructive Pulmonary Disease (COPD) Endocrine Medical History: Reports: Diabetes Mellitus Type 2, Hypothyroidism Musculoskeltal Medical History: Reports: Arthritis Psychiatric Medical History: Reports: Depression Past Surgical History Past Surgical History: Reports: Cardiac Catheterization, Orthopedic Surgery - bilat knee replacements remotely Social History Information Source: Patient, [facility] Records Lives with: Alone Smoking Status: Never Smoker Electronic Cigarette use?: No Frequency of Alcohol Use: None Hx Recreational Drug Use: No Drugs: None Hx Prescription Drug Abuse: No - Advance Directive Resuscitation Status: Full Code Family History Family History: CAD, DM, Hypertension Parental Family History Reviewed: Yes Children Family History Reviewed: Yes Sibling(s) Family History Reviewed.: Yes Medication/Allergy Home Medications: Albuterol Sulfate [Proair HFA] 2 puff IH Q4HP PRN 04/11/18 Amlodipine Besylate [Norvasc 10 mg Tablet] 10 mg PO DAILY 04/11/18 Bupropion HCl [Wellbutrin Xl 300mg 24hr Tablet] 300 mg PO DAILY 04/11/18 Hydrochlorothiazide [Hydrodiuril 25 mg Tablet] 25 mg PO QAM 04/11/18 Hydrocodone/Acetaminophen [Hydrocodone-Acetamin 7.5-325] 2 each PO TID 04/11/18 Insulin Regular, Human [Novolin R (Reg) Insulin 100 unit/mL] 0 unit SUBCUT .SLD SCALE 04/11/18 Linagliptin [Tradjenta] 5 mg PO DAILY 04/11/18 Metformin HCl [Glucophage 500 mg Tablet] 250 mg PO DAILY 04/11/18 Montelukast Sodium [Singulair 10 mg Tablet] 10 mg PO QHS 04/11/18 NPH, Human Insulin Isophane [Novolin N (NPH) Insulin 100 unit/mL] 45 unit SUBCUT BID 04/11/18 Pravastatin Sodium [Pravachol] 40 mg PO QHS 04/11/18 Ramipril [Altace] 5 mg PO DAILY 04/11/18 Azithromycin [Zithromax 250 mg Tablet] 500 mg PO DAILY #6 tablet 04/12/18 Prednisone [Deltasone 20 mg Tablet] 40 mg PO DAILY #10 tablet 04/12/18 Allergies/Adverse Reactions: No Known Allergies Allergy (Verified 05/18/17 06:14) Review of Systems Constitutional: PRESENT: as per HPI, fatigue, weakness Eyes: ABSENT: visual disturbances Ears: ABSENT: hearing changes Cardiovascular: PRESENT: as per HPI, dyspnea on exertion, edema, orthropnea, palpitations Respiratory: PRESENT: as per HPI, cough. ABSENT: sputum Gastrointestinal: ABSENT: abdominal pain, constipation, diarrhea, hematemesis, hematochezia, nausea, vomiting Genitourinary: ABSENT: dysuria, hematuria Musculoskeletal: ABSENT: joint swelling Integumentary: ABSENT: rash, wounds Neurological: ABSENT: abnormal gait, abnormal speech, confusion, dizziness, focal weakness, syncope Psychiatric: ABSENT: anxiety, depression, homidical ideation, suicidal ideation Endocrine: ABSENT: cold intolerance, heat intolerance, polydipsia, polyuria Hematologic/Lymphatic: ABSENT: easy bleeding, easy bruising Physical Exam Vital Signs: Temp Pulse Resp BP Pulse Ox 98.0 F 81 19 125/51 L 100 08/07/19 00:30 08/07/19 00:34 08/07/19 03:02 08/07/19 03:02 08/07/19 03:02 Intake & Output 0208/06/19 08/07/19 11:59 11:59 11:59 Intake Total 50 Balance 50 Weight 123.5 kg General appearance: PRESENT: cooperative, mild distress, morbidly obese, well-developed Head exam: PRESENT: atraumatic, normocephalic Eye exam: PRESENT: conjunctiva pink, EOMI, PERRLA. ABSENT: scleral icterus Ear exam: PRESENT: normal external ear exam Mouth exam: PRESENT: moist, tongue midline Neck exam: ABSENT: carotid bruit, JVD, lymphadenopathy, thyromegaly Respiratory exam: PRESENT: crackles, prolonged expiratory phas, rales, retraction, symmetrical, tachypnea Cardiovascular exam: PRESENT: gallop, irregular rhythm, tachycardia. ABSENT: diastolic murmur, rubs, systolic murmur Pulses: PRESENT: normal dorsalis pedis pul Vascular exam: PRESENT: normal capillary refill GI/Abdominal exam: PRESENT: normal bowel sounds, soft. ABSENT: distended, guarding, mass, organolmegaly, rebound, tenderness Rectal exam: PRESENT: deferred Extremities exam: PRESENT: full ROM, pedal edema, +2 edema. ABSENT: tenderness Musculoskeletal exam: PRESENT: full ROM Neurological exam: PRESENT: alert, awake, oriented to person, oriented to place, oriented to time, oriented to situation, CN II-XII grossly intact. ABSENT: motor sensory deficit Psychiatric exam: PRESENT: appropriate affect, normal mood. ABSENT: homicidal ideation, suicidal ideation Skin exam: PRESENT: dry, intact, warm. ABSENT: cyanosis, rash Results Laboratory Results: 08/06/19 17:00 08/06/19 17:00 08/06/19 08/06/19 08/06/19 17:00 17:00 19:20 WBC 18.9 H RBC 3.36 L Hgb 10.5 L Hct 31.7 L MCV 94 MCH 31.1 MCHC 33.0 RDW 15.1 H Plt Count 394 Seg Neutrophils % Not Reportable Sodium 136.1 L Potassium 4.7 Chloride 101 Carbon Dioxide 24 Anion Gap 11 BUN 49 H Creatinine 1.95 H Est GFR ( Amer) 31 L Glucose 160 H Lactic Acid Calcium 9.3 Total Bilirubin 0.3 AST 12 L Alkaline Phosphatase 91 Total Protein 6.1 L Albumin 2.9 L Urine Color YELLOW Urine Appearance SLIGHTLY-CLOUDY Urine pH 5.0 Ur Specific [place] 1.019 Urine Protein >=500 H Urine Glucose (UA) NEGATIVE Urine Ketones NEGATIVE Urine Blood NEGATIVE Urine Nitrite NEGATIVE Ur Leukocyte Esterase MODERATE H Urine WBC (Auto) 35 Urine RBC (Auto) 4 08/06/19 22:40 WBC RBC Hgb Hct MCV MCH MCHC RDW Plt Count Seg Neutrophils % Sodium Potassium Chloride Carbon Dioxide Anion Gap BUN Creatinine Est GFR ( Amer) Glucose Lactic Acid 0.7 Calcium Total Bilirubin AST Alkaline Phosphatase Total Protein Albumin Urine Color Urine Appearance Urine pH Ur Specific [place] Urine Protein Urine Glucose (UA) Urine Ketones Urine Blood Urine Nitrite Ur Leukocyte Esterase Urine WBC (Auto) Urine RBC (Auto) 08/06/19 08/06/19 08/06/19 17:00 17:00 17:00 Creatine Kinase 32 CK-MB (CK-2) 0.42 Troponin I < 0.012 NT-Pro-B Natriuret Pep 2330 H Impressions: Chest X-Ray 08/06/19 14:11 IMPRESSION: Multicentric pneumonia. Assessment and Plan - Diagnosis (1) Shortness of breath Is this a current diagnosis for this admission?: Yes Plan: Multifactorial shortness of breath secondary to bilateral pneumonia, uncontrolled A. fib with RVR, acute decompensated systolic heart failure and anemia. Plan is illustrated below. Likely undiagnosed obstructive sleep apnea, strongly suggest and recommended outpatient sleep study. (2) Congestive heart failure Is this a current diagnosis for this admission?: Yes Plan: Complicated by medication indiscretion, she is clearly volume overloaded, follow-up 2D echo, rate and volume control with nitrate JAY inhibitor and Lasix as tolerated. (3) Atrial fibrillation Is this a current diagnosis for this admission?: Yes Plan: Complicated by pneumonia and medication indiscretion. Rate control on IV Cardizem, Eliquis initiated. (4) Anemia Is this a current diagnosis for this admission?: Yes Plan: Follow-up anemia labs (5) Bilateral pneumonia Qualifiers: Pneumonia type: due to unspecified organism Lung location: lower lobe of lung Qualified Code(s): J18.9 - Pneumonia, unspecified organism Is this a current diagnosis for this admission?: Yes Plan: Pneumonia care set deployed, incentive spirometry, flutter valve, follow-up CBC and blood culture (6) Morbid obesity Is this a current diagnosis for this admission?: Yes Plan: Severe deconditioning unable to ambulate greater than 20 feet at baseline or climb stairs preventing entry and exit of home (7) Diabetes mellitus type 2 in obese Is this a current diagnosis for this admission?: Yes Plan: Complicated by medication indiscretion, unclear regiment requirement, NPH 30 twice daily plus Humalog sliding scale initiated. (8) Acute renal failure Is this a current diagnosis for this admission?: Yes Plan: Proteinuria without hematuria. Avoid aggressive diuresis, nephrotoxic meds and doses follow-up chemistry - Time Time Spent with patient: 25-34 minutes - Inpatient Certification Medical Necessity: Need Close Monitoring Due to Risk of Patient Decompensation
[2019-08-07] MEDS ORDERED: HEPARIN SOD (PORCINE) 5,000 UNIT/ML 1 ML VIAL SUBCUT SCH (06:00)
[2019-08-07 06:08] LABS: ABSOLUTE RETICS # 0.049 10^6/uL (0.028-0.122); HEMATOCRIT 31.6 % (36.0-47.0); HEMOGLOBIN 10.1 g/dL (12.0-15.5); MEAN CORPUSCULAR HEMOGLOBIN 30.8 pg (27.0-33.4); MEAN CORPUSCULAR HGB CONC 32.1 g/dL (32.0-36.0); MEAN CORPUSCULAR VOLUME 96 fl (80-97); PLATELET COUNT 393 10^3/uL (150-450); RED CELL DISTRIBUTION WIDTH 15.7 % (11.5-14.0); RETICULOCYTE COUNT (AUTO) 1.48 % (0.66-2.85); WHITE BLOOD COUNT 18.6 10^3/uL (4.0-10.5)
[2019-08-07 06:28] LABS: ANION GAP 11 (5-19); BLOOD UREA NITROGEN 51 mg/dL (7-20); CALCIUM 9.1 mg/dL (8.4-10.2); CARBON DIOXIDE 24 mmol/L (22-30); CHLORIDE 102 mmol/L (98-107); CREATINE KINASE 24 U/L (30-135); GLUCOSE 197 mg/dL (75-110); POTASSIUM 3.9 mmol/L (3.6-5.0)
[2019-08-07 06:38] LABS: ABSOLUTE MONOCYTES # (MANUAL) 0.9 10^3/uL (0.1-1.4); BASOPHILS % (MANUAL) 0 % (0-2); EOSINOPHILS % (MANUAL) 0 % (0-6); LYMPHOCYTES % (MANUAL) 11 % (13-45); MONOCYTES % (MANUAL) 5 % (3-13); SEGMENTED NEUTROPHILS % (MAN) 84 % (42-78); TOTAL CELLS COUNTED 100
[2019-08-07 06:40] LABS: ANISOCYTOSIS SLIGHT; PLATELET CLUMPS PRESENT; PLATELET COMMENT ADEQUATE; TEAR DROP CELLS SLIGHT; TOXIC GRANULATION SLIGHT
[2019-08-07] MEDS: INSULIN LISPRO 100 UNIT/ML 3 ML VIAL SUBCUT SCH ×3 (08:47→16:16)
[2019-08-07] MEDS: INSULIN NPH (ISOPHANE), HUMAN 100 UNIT/ML 3 ML SUBCUT SCH ×2 (08:48→16:16)
[2019-08-07] MEDS ORDERED: AMLODIPINE BESYLATE 10 MG TABLET PO SCH (10:00)
[2019-08-07] MEDS: ACETAMINOPHEN 325 MG TABLET PO PRN ×2 (10:57→21:45)
[2019-08-07] MEDS: FLUTICASONE NASAL SPRAY 50 MCG/SPRY 120 SPRAY/16 GM NASL SCH ×2 (11:00→22:40)
--- NOTE | 2019-08-07 12:42 | PDOC PROGRESS REPORT ---
Subjective Progress Note for:: 08/07/19 Subjective:: History of Present Illness: OLIVE BLANCA is a 69 year old female with a past medical history of diabetes, hypertension, anxiety, depression, morbid obesity, osteoarthritis, congestive heart failure, and atrial fibrillation who was admitted 08/06/2019 with bilateral pneumonia. Patient was seen on morning rounds while still in emergency department. She just returned from ambulating to the restroom on room air; she was noted to be tachypneic with increased work of breathing, but speaking in full sentences. When asked specifically about breathing, she states that she has improved slightly. ROS is otherwise limited due to patient's limited participation in ques tioning/exam. She is voicing numerous complaints regarding PCP having weaned her from narcotic medications which now requires her to sleep in a recliner. She also complains about a prior stroke that was "100% debilitating." She does appear to be comfortable and is not noted to be in any acute distress at this time. No concerns per nursing. Reason For Visit: PNEUMONIA Physical Exam Vital Signs: Temp Pulse Resp BP Pulse Ox 98.0 F 81 20 170/49 H 100 08/07/19 11:06 08/07/19 00:34 08/07/19 10:01 08/07/19 10:01 08/07/19 10:01 Intake & Output 08/06/19 08/07/19 08/08/19 06:59 06:59 06:59 Intake Total 50 Balance 50 Weight 123.5 kg General appearance: PRESENT: no acute distress, morbidly obese, well-developed, well-nourished Head exam: PRESENT: atraumatic, normocephalic Eye exam: PRESENT: conjunctiva pink, EOMI, PERRLA. ABSENT: scleral icterus Ear exam: PRESENT: normal external ear exam Mouth exam: PRESENT: moist, tongue midline Respiratory exam: PRESENT: rhonchi, symmetrical, tachypnea, wheezes, other - Supplemental oxygen by nasal cannula. ABSENT: rales Cardiovascular exam: PRESENT: RRR, +S1, +S2. ABSENT: diastolic murmur, rubs, systolic murmur Vascular exam: PRESENT: normal capillary refill Extremities exam: PRESENT: full ROM, pedal edema - Trace bilaterally. ABSENT: calf tenderness, clubbing Musculoskeletal exam: PRESENT: ambulatory Neurological exam: PRESENT: alert, awake, oriented to person, oriented to place, oriented to time, oriented to situation, CN II-XII grossly intact. ABSENT: motor sensory deficit Psychiatric exam: PRESENT: agitated, appropriate affect, normal mood. ABSENT: homicidal ideation, suicidal ideation Skin exam: PRESENT: dry, intact, warm. ABSENT: cyanosis, rash Results Laboratory Results: 08/07/19 05:36 08/07/19 05:36 08/06/19 08/06/19 08/06/19 17:00 17:00 19:20 WBC 18.9 H RBC 3.36 L Hgb 10.5 L Hct 31.7 L MCV 94 MCH 31.1 MCHC 33.0 RDW 15.1 H Plt Count 394 Seg Neutrophils % Not Reportable Retic Count (auto) Absolute Retic Sodium 136.1 L Potassium 4.7 Chloride 101 Carbon Dioxide 24 Anion Gap 11 BUN 49 H Creatinine 1.95 H Est GFR ( Amer) 31 L Glucose 160 H Lactic Acid Calcium 9.3 Iron TIBC % Saturation Ferritin Total Bilirubin 0.3 AST 12 L Alkaline Phosphatase 91 Total Protein 6.1 L Albumin 2.9 L Vitamin B12 Folate Urine Color YELLOW Urine Appearance SLIGHTLY-CLOUDY Urine pH 5.0 Ur Specific [place] 1.019 Urine Protein >=500 H Urine Glucose (UA) NEGATIVE Urine Ketones NEGATIVE Urine Blood NEGATIVE Urine Nitrite NEGATIVE Ur Leukocyte Esterase MODERATE H Urine WBC (Auto) 35 Urine RBC (Auto) 4 08/06/19 08/07/19 08/07/19 22:40 05:36 05:36 WBC 18.6 H RBC 3.30 L Hgb 10.1 L Hct 31.6 L MCV 96 MCH 30.8 MCHC 32.1 RDW 15.7 H Plt Count 393 Seg Neutrophils % Not Reportable Retic Count (auto) 1.48 Absolute Retic Sodium 136.8 L Potassium 3.9 Chloride 102 Carbon Dioxide 24 Anion Gap 11 BUN 51 H Creatinine 2.09 H Est GFR ( Amer) 28 L Glucose 197 H Lactic Acid 0.7 Calcium 9.1 Iron TIBC % Saturation Ferritin Total Bilirubin AST Alkaline Phosphatase Total Protein Albumin Vitamin B12 Folate Urine Color Urine Appearance Urine pH Ur Specific [place] Urine Protein Urine Glucose (UA) Urine Ketones Urine Blood Urine Nitrite Ur Leukocyte Esterase Urine WBC (Auto) Urine RBC (Auto) 08/07/19 08/07/19 05:36 05:36 WBC RBC Hgb Hct MCV MCH MCHC RDW Plt Count Seg Neutrophils % Retic Count (auto) Cancelled Absolute Retic Cancelled Sodium Potassium Chloride Carbon Dioxide Anion Gap BUN Creatinine Est GFR ( Amer) Glucose Lactic Acid Calcium Iron 18.0 L TIBC 190 L % Saturation 9 Ferritin 452.00 H Total Bilirubin AST Alkaline Phosphatase Total Protein Albumin Vitamin B12 > 1000.0 H Folate 14.50 Urine Color Urine Appearance Urine pH Ur Specific [place] Urine Protein Urine Glucose (UA) Urine Ketones Urine Blood Urine Nitrite Ur Leukocyte Esterase Urine WBC (Auto) Urine RBC (Auto) 08/06/19 08/06/19 08/06/19 17:00 17:00 17:00 Creatine Kinase 32 CK-MB (CK-2) 0.42 Troponin I < 0.012 NT-Pro-B Natriuret Pep 2330 H 08/07/19 05:36 Creatine Kinase 24 L CK-MB (CK-2) Troponin I NT-Pro-B Natriuret Pep Impressions: Chest X-Ray 08/06/19 14:11 IMPRESSION: Multicentric pneumonia. Assessment and Plan - Diagnosis (1) Bilateral pneumonia Qualifiers: Pneumonia type: due to unspecified organism Lung location: lower lobe of lung Qualified Code(s): J18.9 - Pneumonia, unspecified organism Is this a current diagnosis for this admission?: Yes Plan: Blood cultures are pending. Patient is admitted to the medical floor on continuous cardiac telemetry. Supplemental oxygen as needed maintain saturations greater than 90%. Empirically placed on IV Rocephin and azithromycin for community-acquired pneumonia. Schedule and as needed nebulizer treatments. Flonase twice daily. Robitussin as needed. Encourage pulmonary toilet with incentive spirometer, flutter valve, and ambulation. (2) Atrial fibrillation Is this a current diagnosis for this admission?: Yes Plan: Complicated by pneumonia and medication indiscretion. Anticoagulated on Eliquis. Continue home dose amiodarone and Toprol Monitor on telemetry. (3) Acute renal failure Is this a current diagnosis for this admission?: Yes Plan: Proteinuria without hematuria. Creatinine 2.09/BUN 51.; baseline 1.19. We will continue gentle IV fluids. Optimize cardiac output. Avoid nephrotoxic medications as able. Follow-up chemistry (4) Anemia Qualifiers: Anemia type: iron deficiency Is this a current diagnosis for this admission?: Yes Plan: Hemoglobin 10.1; currently stable. No evidence of bleeding. Anemia panel confirms iron deficiency anemia. We will start on multivitamin with iron supplement daily. Registered dietitian is consulted. (5) Congestive heart failure Is this a current diagnosis for this admission?: Yes Plan: Complicated by medication indiscretion Continue atrial fibrillation rate control with amiodarone. Anticoagulated with Eliquis. Continue home dose ramipril and Toprol. Continue daily weights. Cardiac diet strict I&O's. Patient educator and registered dietitian are consulted. (6) Morbid obesity Is this a current diagnosis for this admission?: Yes Plan: Severe deconditioning unable to ambulate greater than 20 feet at baseline or climb stairs preventing entry and exit of home. She is placed on a cardiac/consistent carb diet. Registered dietitian is consulted. PT/OT consulted. (7) Shortness of breath Is this a current diagnosis for this admission?: Yes Plan: Multifactorial shortness of breath secondary to bilateral pneumonia, uncon trolled A. fib with RVR, acute decompensated systolic heart failure and anemia. Plan as outlined elsewhere. Likely undiagnosed obstructive sleep apnea, strongly suggest and recommended outpatient sleep study. (8) Diabetes mellitus type 2 in obese Is this a current diagnosis for this admission?: Yes Plan: Hemoglobin A1c 8.4%. Patient is placed on a cardiac diet. Continue NPH 35 units twice daily. Accu-Cheks before meals and at bedtime with sliding scale insulin. Registered dietitian clinical staff educator consulted. (9) Fibromyalgia Is this a current diagnosis for this admission?: Yes Plan: Continue home medication regiment. Avoid narcotic medications. Encourage mobility. - Time Time Spent with patient: 35 or more minutes Medications reviewed and adjusted accordingly: Yes Anticipated discharge: Home with Homehealth Within: within 72 hours
[2019-08-07] MEDS: NORMAL SALINE 1000 ML 1,000 ML IV PRN (17:05)
[2019-08-07] MEDS: BUSPIRONE HCL 10 MG TABLET PO SCH (17:09)
[2019-08-07] MEDS: BUPROPION HCL 75 MG TABLET PO SCH (17:09)
[2019-08-07] MEDS: APIXABAN 5 MG TABLET PO SCH (17:09)
[2019-08-07] MEDS ORDERED: (PENDING PHARMACY ID) (Pravastatin Sodium [Pravachol] 40 MG) PO SCH (18:00)
[2019-08-07] MEDS: ATORVASTATIN CALCIUM 10 MG TABLET PO SCH (21:12)
[2019-08-07] MEDS: AZITHROMYCIN 500 MG in DEXTROSE 5%-WATER 250 ML IV SCH (21:13)
[2019-08-07] MEDS: CEFTRIAXONE 1 GM/D5W RTU 1 GM/50 ML RTUPB IV SCH (21:47)
[2019-08-08] MEDS: IPRATROPIUM/ALBUTEROL 0.5-2.5 MG/3 ML AMPUL NEB SCH ×4 (00:01→23:55)
[2019-08-08 05:36] LABS: HEMATOCRIT 31.4 % (36.0-47.0); HEMOGLOBIN 10.2 g/dL (12.0-15.5); MEAN CORPUSCULAR HEMOGLOBIN 30.7 pg (27.0-33.4); MEAN CORPUSCULAR HGB CONC 32.4 g/dL (32.0-36.0); MEAN CORPUSCULAR VOLUME 95 fl (80-97); PLATELET COUNT 389 10^3/uL (150-450); RED BLOOD COUNT 3.31 10^6/uL (3.72-5.28); RED CELL DISTRIBUTION WIDTH 15.4 % (11.5-14.0); WHITE BLOOD COUNT 12.3 10^3/uL (4.0-10.5)
[2019-08-08] MEDS: LEVOTHYROXINE SODIUM 0.05 MG TABLET PO SCH (05:41)
[2019-08-08 06:03] LABS: ANION GAP 9 (5-19); BLOOD UREA NITROGEN 48 mg/dL (7-20); CALCIUM 9.1 mg/dL (8.4-10.2); CARBON DIOXIDE 24 mmol/L (22-30); CHLORIDE 106 mmol/L (98-107); GLUCOSE 172 mg/dL (75-110); POTASSIUM 3.4 mmol/L (3.6-5.0)
[2019-08-08] MEDS: INSULIN LISPRO 100 UNIT/ML 3 ML VIAL SUBCUT SCH ×3 (07:33→16:02)
[2019-08-08] MEDS: INSULIN NPH (ISOPHANE), HUMAN 100 UNIT/ML 3 ML SUBCUT SCH ×2 (07:49→16:03)
[2019-08-08] MEDS: FLUTICASONE NASAL SPRAY 50 MCG/SPRY 120 SPRAY/16 GM NASL SCH ×2 (09:39→21:29)
[2019-08-08] MEDS: BUSPIRONE HCL 10 MG TABLET PO SCH ×2 (09:40→17:02)
[2019-08-08] MEDS: APIXABAN 5 MG TABLET PO SCH ×2 (09:40→17:02)
[2019-08-08] MEDS: AMIODARONE HCL 200 MG TABLET PO SCH (09:40)
[2019-08-08] MEDS: MULTIVITAMIN TABLET PO SCH (09:40)
[2019-08-08] MEDS: RAMIPRIL 10 MG CAPSULE PO SCH (09:41)
[2019-08-08] MEDS: BUPROPION HCL 75 MG TABLET PO SCH ×2 (09:41→17:02)
[2019-08-08] MEDS: METOPROLOL SUCCINATE 25 MG TAB.SR.24H PO SCH (09:41)
[2019-08-08] MEDS: FERROUS SULFATE 325 MG TABLET PO SCH (09:41)
[2019-08-08] MEDS: TRAMADOL HCL 50 MG TABLET PO PRN ×2 (09:45→20:17)
[2019-08-08] MEDS ORDERED: (PENDING PHARMACY ID) (Bupropion Hcl [Bupropion Xl] 150 MG) PO SCH (10:00)
[2019-08-08] MEDS: NORMAL SALINE 1000 ML 1,000 ML IV PRN (10:20)
[2019-08-08] MEDS ORDERED: NORMAL SALINE 1000 ML 1,000 ML IV PRN (13:02)
--- NOTE | 2019-08-08 13:11 | XCELERA REPORT ---
[address] [address] Transthoracic Echocardiogram Report Name: OLIVE BLANCA Age: 69 yrs Gender: Female : 1950 Patient Status: Inpatient Patient Location: [address] [place] [address] Study Date: 08/07/2019 02:30 PM Height: 64 in Weight: 272 lb BSA: 2.2 m2 Procedure: A two-dimensional transthoracic echocardiogram with color flow and Doppler was performed. Study Quality: Fair. Reason For Study: systolic murmur History: systolic murmur. Ordering Physician: SALAZAR GILMORE Performed By: Marcia Ramirez Interpretation Summary The left ventricle is normal in size. There is normal left ventricular wall thickness. LV EF is 60% to 65% Doppler measurements suggest normal left ventricular diastolic function The left ventricular wall motion is normal. There is no thrombus. No ASD ,VSD,or PFO seen. The right ventricle is normal in size and function. The right ventricle is not well visualized secondary to technical limitations The right atrium is normal in size The left atrium is mildly dilated. There is no evidence of mitral valve prolapse. There is no vegetation seen on the mitral valve. There is no mitral valve stenosis. There is a trace amount of mitral regurgitation There is no aortic valvular vegetation. There is no aortic valve stenosis There is no LVOT obstruction. No aortic regurgitation is present. There is no tricuspid stenosis. There is a trace to mild amount of tricuspid regurgitation There is mild pulmonary hypertension by echo RVSP is 38 to 43 mm of Hg , with RA mean of 5 to 10. There is no pulmonic valvular stenosis. There is no pulmonic valvular regurgitation. The aortic root is normal size. The inferior vena cava appeared normal and decreased > 50% with respiration (RAP 5-10 mmHg) There is no pericardial effusion. MMode/2D Measurements & Calculations RVDd: 3.1 cm LVIDd: 5.9 cm FS: 33.7 % Ao root diam: 2.8 cm IVSd: 0.98 cm LVIDs: 3.9 cm EDV(Teich): 173.7 ml Ao root area: 6.0 cm2 LVPWd: 0.96 cm ESV(Teich): 66.6 ml LA dimension: 4.4 cm EF(Teich): 61.6 % Doppler Measurements & Calculations MV E max raymond: MV P1/2t max raymond: Ao V2 max: LV V1 max P.2 cm/sec 109.0 cm/sec 176.3 cm/sec 9.0 mmHg MV A max raymond: MV P1/2t: 49.1 msec Ao max PG: LV V1 max: 107.6 cm/sec MVA(P1/2t): 4.5 cm2 12.4 mmHg 149.9 cm/sec MV E/A: 1.0 MV dec slope: 650.4 cm/sec2 MV dec time: 0.18 sec PA V2 max: TR max raymond: MV P1/2t-pr_phl: 135.7 cm/sec 287.8 cm/sec 49.1 msec PA max P.4 mmHgTR max P.1 mmHg Left Ventricle The left ventricle is normal in size. There is normal left ventricular wall thickness. LV EF is 60% to 65%. Doppler measurements suggest normal left ventricular diastolic function. The left ventricular wall motion is normal. There is no thrombus. No ASD ,VSD,or PFO seen. Right Ventricle The right ventricle is normal in size and function. The right ventricle is not well visualized secondary to technical limitations. Atria The right atrium is normal in size. The left atrium is mildly dilated. Mitral Valve There is no evidence of mitral valve prolapse. There is no vegetation seen on the mitral valve. There is no mitral valve stenosis. There is a trace amount of mitral regurgitation. Aortic Valve There is no aortic valvular vegetation. There is no aortic valve stenosis. There is no LVOT obstruction. No aortic regurgitation is present. Tricuspid Valve There is no tricuspid stenosis. There is a trace to mild amount of tricuspid regurgitation. There is mild pulmonary hypertension by echo. RVSP is 38 to 43 mm of Hg , with RA mean of 5 to 10. Pulmonic Valve There is no pulmonic valvular stenosis. There is no pulmonic valvular regurgitation. Great Vessels The aortic root is normal size. The inferior vena cava appeared normal and decreased > 50% with respiration (RAP 5-10 mmHg). Effusions There is no pericardial effusion. : SALAZAR GILMORE Lakshmi
--- NOTE | 2019-08-08 13:22 | PDOC PROGRESS REPORT ---
Subjective Progress Note for:: 08/08/19 Subjective:: History of Present Illness: OLIVE BLANCA is a 69 year old female with a past medical history of diabetes, hypertension, anxiety, depression, morbid obesity, osteoarthritis, congestive heart failure, and atrial fibrillation who was admitted 08/06/2019 with bilateral pneumonia. Patient was seen on morning rounds. She was found sitting upright to the recliner, comfortably, on room air. She appears to be much better today and does confirm that she is feeling well. She reports continued slight dyspnea with minimal exertion, but is no longer tachypneic at rest. She does report continued sputum production although her cough is also somewhat improved today. He further denies fever, chills, chest pain, palpitations, orthopnea, abdominal pain, nausea vomiting and diarrhea. She has no new questions or concerns today. Hopeful to go home tomorrow. No concerns per nursing. Reason For Visit: PNEUMONIA Physical Exam Vital Signs: Temp Pulse Resp BP Pulse Ox 98.4 F 72 19 147/49 H 100 08/08/19 11:09 08/08/19 11:09 08/08/19 11:09 08/08/19 11:09 08/08/19 11:09 Intake & Output 08/07/19 08/08/19 08/09/19 06:59 06:59 06:59 Intake Total 50 1960 Balance 50 1960 Weight 123.5 kg 123.5 kg General appearance: PRESENT: no acute distress, cooperative, morbidly obese, well-developed, well-nourished Head exam: PRESENT: atraumatic, normocephalic Eye exam: PRESENT: conjunctiva pink, EOMI, PERRLA. ABSENT: scleral icterus Ear exam: PRESENT: normal external ear exam Mouth exam: PRESENT: moist, tongue midline Neck exam: ABSENT: carotid bruit, JVD, lymphadenopathy, thyromegaly Respiratory exam: PRESENT: rhonchi - improved, symmetrical, unlabored, other - room air. ABSENT: rales, wheezes Cardiovascular exam: PRESENT: RRR, +S1, +S2. ABSENT: diastolic murmur, rubs, systolic murmur Pulses: PRESENT: normal dorsalis pedis pul Vascular exam: PRESENT: normal capillary refill GI/Abdominal exam: PRESENT: normal bowel sounds, soft. ABSENT: distended, guarding, mass, organolmegaly, rebound, tenderness Rectal exam: PRESENT: deferred Extremities exam: PRESENT: full ROM. ABSENT: calf tenderness, clubbing, pedal edema Musculoskeletal exam: PRESENT: ambulatory Neurological exam: PRESENT: alert, awake, oriented to person, oriented to place, oriented to time, oriented to situation, CN II-XII grossly intact. ABSENT: motor sensory deficit Psychiatric exam: PRESENT: appropriate affect, normal mood. ABSENT: homicidal ideation, suicidal ideation Skin exam: PRESENT: dry, intact, warm. ABSENT: cyanosis, rash Results Laboratory Results: 08/08/19 04:59 08/08/19 04:59 08/08/19 08/08/19 04:59 04:59 WBC 12.3 H RBC 3.31 L Hgb 10.2 L Hct 31.4 L MCV 95 MCH 30.7 MCHC 32.4 RDW 15.4 H Plt Count 389 Sodium 138.8 Potassium 3.4 L Chloride 106 Carbon Dioxide 24 Anion Gap 9 BUN 48 H Creatinine 1.77 H Est GFR ( Amer) 34 L Glucose 172 H Calcium 9.1 08/06/19 08/06/19 08/06/19 17:00 17:00 17:00 Creatine Kinase 32 CK-MB (CK-2) 0.42 Troponin I < 0.012 NT-Pro-B Natriuret Pep 2330 H 08/07/19 05:36 Creatine Kinase 24 L CK-MB (CK-2) Troponin I NT-Pro-B Natriuret Pep Impressions: Chest X-Ray 08/06/19 14:11 IMPRESSION: Multicentric pneumonia. Assessment and Plan - Diagnosis (1) Bilateral pneumonia Qualifiers: Pneumonia type: due to unspecified organism Lung location: lower lobe of lung Qualified Code(s): J18.9 - Pneumonia, unspecified organism Is this a current diagnosis for this admission?: Yes Plan: Improed; now maintaining oxygen saturations on room air while at rest. Blood cultures are negative at 24 hours. Patient is admitted to the medical floor on continuous cardiac telemetry. Supplemental oxygen as needed maintain saturations greater than 90%. Empirically placed on IV Rocephin and azithromycin for community-acquired pneumonia. Day #2. Schedule and as needed nebulizer treatments. Flonase twice daily. Robitussin as needed. Encourage pulmonary toilet with incentive spirometer, flutter valve, and ambulation. (2) Atrial fibrillation Is this a current diagnosis for this admission?: Yes Plan: Rate controlled on home medication regiment. Anticoagulated on Eliquis. Continue home dose amiodarone and Toprol Monitor on telemetry. (3) Acute renal failure Is this a current diagnosis for this admission?: Yes Plan: Proteinuria without hematuria. Creatinine 2.09/BUN 51.; baseline 1.19. Slight improvement today to creatinine of 1.77 We will continue gentle IV fluids. Optimize cardiac output. Holding furosemide. Avoid nephrotoxic medications as able. Follow-up chemistry (4) Anemia Qualifiers: Anemia type: iron deficiency Is this a current diagnosis for this admission?: Yes Plan: Hemoglobin 10.1; currently stable. No evidence of bleeding. Anemia panel confirms iron deficiency anemia. Continue multivitamin with iron supplement daily. Registered dietitian is consulted. (5) Congestive heart failure Is this a current diagnosis for this admission?: Yes Plan: Echocardiogram revealed LVEF 60 to 65% with normal LV diastolic function. There is mild pulmonary hypertension. Continue atrial fibrillation rate control with amiodarone. Anticoagulated with Eliquis. Continue home dose ramipril and Toprol. Continue daily weights. Cardiac diet strict I&O's. Patient educator and registered dietitian are consulted. (6) Morbid obesity Is this a current diagnosis for this admission?: Yes Plan: Severe deconditioning unable to ambulate greater than 20 feet at baseline or climb stairs preventing entry and exit of home. She is placed on a cardiac/consistent carb diet. Registered dietitian is consulted. PT/OT consulted. (7) Shortness of breath Is this a current diagnosis for this admission?: Yes Plan: Significantly improved Multifactorial shortness of breath secondary to bilateral pneumonia, uncontrolled A. fib with RVR, and anemia. Plan as outlined elsewhere. Likely undiagnosed obstructive sleep apnea, strongly suggest and recommended outpatient sleep study. (8) Diabetes mellitus type 2 in obese Is this a current diagnosis for this admission?: Yes Plan: Hemoglobin A1c 8.4%. Patient is placed on a cardiac diet. Continue NPH 35 units twice daily. Accu-Cheks before meals and at bedtime with sliding scale insulin. Registered dietitian clinical trial educator consulted. (9) Fibromyalgia Is this a current diagnosis for this admission?: Yes Plan: Continue home medication regiment. Avoid narcotic medications. Encourage mobility. - Time Time Spent with patient: 25-34 minutes Medications reviewed and adjusted accordingly: Yes Anticipated discharge: Home Within: within 48 hours
[2019-08-08] MEDS: AZITHROMYCIN 500 MG in DEXTROSE 5%-WATER 250 ML IV SCH (21:28)
[2019-08-08] MEDS: CEFTRIAXONE 1 GM/D5W RTU 1 GM/50 ML RTUPB IV SCH (21:28)
[2019-08-08] MEDS: ATORVASTATIN CALCIUM 10 MG TABLET PO SCH (21:29)
[2019-08-09] MEDS: LEVOTHYROXINE SODIUM 0.05 MG TABLET PO SCH (05:38)
[2019-08-09] MEDS: TRAMADOL HCL 50 MG TABLET PO PRN ×2 (05:38→17:12)
[2019-08-09 05:58] LABS: HEMATOCRIT 33.4 % (36.0-47.0); HEMOGLOBIN 10.8 g/dL (12.0-15.5); MEAN CORPUSCULAR HEMOGLOBIN 30.8 pg (27.0-33.4); MEAN CORPUSCULAR HGB CONC 32.4 g/dL (32.0-36.0); MEAN CORPUSCULAR VOLUME 95 fl (80-97); PLATELET COUNT 471 10^3/uL (150-450); RED BLOOD COUNT 3.51 10^6/uL (3.72-5.28); RED CELL DISTRIBUTION WIDTH 15.4 % (11.5-14.0); WHITE BLOOD COUNT 11.3 10^3/uL (4.0-10.5)
[2019-08-09 06:16] LABS: ANION GAP 8 (5-19); BLOOD UREA NITROGEN 37 mg/dL (7-20); CALCIUM 9.6 mg/dL (8.4-10.2); CARBON DIOXIDE 24 mmol/L (22-30); CHLORIDE 107 mmol/L (98-107); GLUCOSE 156 mg/dL (75-110); POTASSIUM 3.7 mmol/L (3.6-5.0)
[2019-08-09] MEDS: INSULIN LISPRO 100 UNIT/ML 3 ML VIAL SUBCUT SCH ×3 (08:05→16:42)
[2019-08-09] MEDS: INSULIN NPH (ISOPHANE), HUMAN 100 UNIT/ML 3 ML SUBCUT SCH ×2 (08:06→17:09)
[2019-08-09] MEDS: IPRATROPIUM/ALBUTEROL 0.5-2.5 MG/3 ML AMPUL NEB SCH ×2 (08:44→17:02)
[2019-08-09] MEDS: AMIODARONE HCL 200 MG TABLET PO SCH (09:43)
[2019-08-09] MEDS: BUPROPION HCL 75 MG TABLET PO SCH ×2 (09:43→17:13)
[2019-08-09] MEDS: BUSPIRONE HCL 10 MG TABLET PO SCH ×2 (09:44→17:10)
[2019-08-09] MEDS: MULTIVITAMIN TABLET PO SCH (09:45)
[2019-08-09] MEDS: FERROUS SULFATE 325 MG TABLET PO SCH (09:45)
[2019-08-09] MEDS: APIXABAN 5 MG TABLET PO SCH ×2 (09:45→17:10)
[2019-08-09] MEDS: METOPROLOL SUCCINATE 25 MG TAB.SR.24H PO SCH (09:45)
[2019-08-09] MEDS: RAMIPRIL 10 MG CAPSULE PO SCH (09:45)
[2019-08-09] MEDS: FLUTICASONE NASAL SPRAY 50 MCG/SPRY 120 SPRAY/16 GM NASL SCH ×2 (09:47→21:26)
[2019-08-09] MEDS: AMLODIPINE BESYLATE 10 MG TABLET PO SCH (12:10)
[2019-08-09] MEDS: NORMAL SALINE 1000 ML 1,000 ML IV PRN (14:21)
[2019-08-09] MEDS ORDERED: NORMAL SALINE 1000 ML 1,000 ML IV PRN (14:28)
[2019-08-09] MEDS ORDERED: BENZONATATE 100 MG CAPSULE PO PRN (14:33)
--- NOTE | 2019-08-09 14:50 | PDOC PROGRESS REPORT ---
Subjective Progress Note for:: 08/09/19 Subjective:: History of Present Illness: OLIVE BLANCA is a 69 year old female with a past medical history of diabetes, hypertension, anxiety, depression, morbid obesity, osteoarthritis, congestive heart failure, and atrial fibrillation who was admitted 08/06/2019 with bilateral pneumonia. Patient was seen on afternoon rounds. She was found sitting upright to the recliner, comfortably, on room air. She reports continued slight dyspnea with exertion, though improved. She does report continued sputum production although now thin. Cough is more frequent. She denies fever, chills, chest pain, palpitations, orthopnea, abdominal pain, nausea vomiting and diarrhea. She has no new questions or concerns today. Hopeful to go home soon. No concerns per nursing. Reason For Visit: PNEUMONIA Physical Exam Vital Signs: Temp Pulse Resp BP Pulse Ox 97.5 F 67 18 187/56 H 98 08/09/19 11:06 08/09/19 11:06 08/09/19 11:06 08/09/19 11:06 08/09/19 11:06 Intake & Output 08/08/19 08/09/19 08/10/19 06:59 06:59 06:59 Intake Total 1959 3417 260 Balance 19597 260 Weight 123.5 kg 123.5 kg General appearance: PRESENT: no acute distress, cooperative, morbidly obese, well-developed, well-nourished Head exam: PRESENT: atraumatic, normocephalic Eye exam: PRESENT: conjunctiva pink, EOMI, PERRLA. ABSENT: scleral icterus Mouth exam: PRESENT: moist, tongue midline Respiratory exam: PRESENT: stridor, symmetrical, unlabored. ABSENT: rales, rhonchi, wheezes Cardiovascular exam: PRESENT: RRR, +S1, +S2. ABSENT: diastolic murmur, rubs, systolic murmur Vascular exam: PRESENT: normal capillary refill GI/Abdominal exam: PRESENT: normal bowel sounds, soft. ABSENT: distended, guarding, mass, organolmegaly, rebound, tenderness Rectal exam: PRESENT: deferred Extremities exam: PRESENT: full ROM, other - chronic lymphedema BLE. ABSENT: calf tenderness, clubbing, pedal edema Musculoskeletal exam: PRESENT: ambulatory Neurological exam: PRESENT: alert, awake, oriented to person, oriented to place, oriented to time, oriented to situation, CN II-XII grossly intact. ABSENT: motor sensory deficit Psychiatric exam: PRESENT: appropriate affect, normal mood. ABSENT: homicidal ideation, suicidal ideation Skin exam: PRESENT: dry, intact, warm. ABSENT: cyanosis, rash Results Laboratory Results: 08/09/19 05:33 08/09/19 05:33 08/09/19 08/09/19 05:33 05:33 WBC 11.3 H RBC 3.51 L Hgb 10.8 L Hct 33.4 L MCV 95 MCH 30.8 MCHC 32.4 RDW 15.4 H Plt Count 471 H Sodium 138.8 Potassium 3.7 Chloride 107 Carbon Dioxide 24 Anion Gap 8 BUN 37 H Creatinine 1.59 H Est GFR ( Amer) 39 L Glucose 156 H Calcium 9.6 08/06/19 08/06/19 08/06/19 17:00 17:00 17:00 Creatine Kinase 32 CK-MB (CK-2) 0.42 Troponin I < 0.012 NT-Pro-B Natriuret Pep 2330 H 08/07/19 05:36 Creatine Kinase 24 L CK-MB (CK-2) Troponin I NT-Pro-B Natriuret Pep Impressions: Chest X-Ray 08/06/19 14:11 IMPRESSION: Multicentric pneumonia. Assessment and Plan - Diagnosis (1) Bilateral pneumonia Qualifiers: Pneumonia type: due to unspecified organism Lung location: lower lobe of lung Qualified Code(s): J18.9 - Pneumonia, unspecified organism Is this a current diagnosis for this admission?: Yes Plan: Improved; now maintaining oxygen saturations on room air while at rest. Blood cultures are negative at 48 hours. Patient is admitted to the medical floor on continuous cardiac telemetry. Supplemental oxygen as needed maintain saturations greater than 90%. Empirically placed on IV Rocephin and azithromycin for community-acquired pneumonia. Day #3. Schedule and as needed nebulizer treatments. Flonase twice daily. Robitussin as needed. Tessalon Perles prn Encourage pulmonary toilet with incentive spirometer, flutter valve, and ambulation. (2) Atrial fibrillation Qualifiers: Atrial fibrillation type: permanent Qualified Code(s): I48.21 - Permanent atrial fibrillation Is this a current diagnosis for this admission?: Yes Plan: Rate controlled on home medication regiment. Anticoagulated on Eliquis. Continue home dose amiodarone and Toprol Monitor on telemetry. (3) Acute renal failure Is this a current diagnosis for this admission?: Yes Plan: Improved; Cr trending down. Proteinuria without hematuria. Creatinine 2.09/BUN 51.; baseline 1.19. We will continue gentle IV fluids. Encourage p.o. fluids Optimize cardiac output. Holding furosemide. Avoid nephrotoxic medications as able. Follow-up chemistry (4) Anemia Qualifiers: Anemia type: iron deficiency Is this a current diagnosis for this admission?: Yes Plan: Hemoglobin 10.8; currently stable. No evidence of bleeding. Anemia panel confirms iron deficiency anemia. Continue multivitamin with iron supplement daily. Registered dietitian is consulted. (5) Congestive heart failure Is this a current diagnosis for this admission?: No Plan: Ruled out. Echocardiogram revealed LVEF 60 to 65% with normal LV diastolic function. There is mild pulmonary hypertension. Continue atrial fibrillation rate control with amiodarone. Anticoagulated with Eliquis. Continue home dose ramipril and Toprol. Continue daily weights. Cardiac diet strict I&O's. Patient educator and registered dietitian are consulted. (6) Morbid obesity Is this a current diagnosis for this admission?: Yes Plan: Severe deconditioning unable to ambulate greater than 20 feet at baseline or climb stairs preventing entry and exit of home. She is placed on a cardiac/consistent carb diet. Registered dietitian is consulted. PT/OT consulted. (7) Shortness of breath Is this a current diagnosis for this admission?: Yes Plan: Significantly improved Multifactorial shortness of breath secondary to bilateral pneumonia, uncontrolled A. fib with RVR, and anemia. Plan as outlined elsewhere. Likely undiagnosed obstructive sleep apnea, strongly suggest and recommended outpatient sleep study. (8) Diabetes mellitus type 2 in obese Is this a current diagnosis for this admission?: Yes Plan: Hemoglobin A1c 8.4%. Patient is placed on a cardiac diet. Continue NPH 35 units twice daily. Accu-Cheks before meals and at bedtime with sliding scale insulin. Registered dietitian clinical unit educator consulted. (9) Fibromyalgia Is this a current diagnosis for this admission?: Yes Plan: Continue home medication regiment. Avoid narcotic medications. Encourage mobility. - Time Time Spent with patient: 25-34 minutes Medications reviewed and adjusted accordingly: Yes Anticipated discharge: Home Within: within 24 hours
[2019-08-09] MEDS: AZITHROMYCIN 500 MG in DEXTROSE 5%-WATER 250 ML IV SCH (21:23)
[2019-08-09] MEDS: CEFTRIAXONE 1 GM/D5W RTU 1 GM/50 ML RTUPB IV SCH (21:23)
[2019-08-09] MEDS: GUAIFENESIN/CODEINE PHOS 100-10 MG/ 5 ML UDC PO PRN (21:24)
[2019-08-09] MEDS: ATORVASTATIN CALCIUM 10 MG TABLET PO SCH (21:25)
[2019-08-10] MEDS: IPRATROPIUM/ALBUTEROL 0.5-2.5 MG/3 ML AMPUL NEB SCH ×2 (00:01→08:47)
[2019-08-10] MEDS: TRAMADOL HCL 50 MG TABLET PO PRN (04:38)
[2019-08-10] MEDS: LEVOTHYROXINE SODIUM 0.05 MG TABLET PO SCH (05:50)
[2019-08-10] MEDS: GUAIFENESIN/CODEINE PHOS 100-10 MG/ 5 ML UDC PO PRN (05:52)
[2019-08-10 07:16] LABS: HEMATOCRIT 32.4 % (36.0-47.0); HEMOGLOBIN 10.9 g/dL (12.0-15.5); MEAN CORPUSCULAR HGB CONC 33.5 g/dL (32.0-36.0); MEAN CORPUSCULAR VOLUME 96 fl (80-97); PLATELET COUNT 483 10^3/uL (150-450); RED CELL DISTRIBUTION WIDTH 15.9 % (11.5-14.0); WHITE BLOOD COUNT 11.4 10^3/uL (4.0-10.5)
[2019-08-10 07:44] LABS: ANION GAP 9 (5-19); BLOOD UREA NITROGEN 35 mg/dL (7-20); CALCIUM 9.3 mg/dL (8.4-10.2); CARBON DIOXIDE 22 mmol/L (22-30); CHLORIDE 108 mmol/L (98-107); GLUCOSE 130 mg/dL (75-110); POTASSIUM 4.4 mmol/L (3.6-5.0)
[2019-08-10] MEDS: INSULIN LISPRO 100 UNIT/ML 3 ML VIAL SUBCUT SCH ×2 (07:54→13:47)
[2019-08-10] MEDS: INSULIN NPH (ISOPHANE), HUMAN 100 UNIT/ML 3 ML SUBCUT SCH (08:27)
[2019-08-10] MEDS: MULTIVITAMIN TABLET PO SCH (09:12)
[2019-08-10] MEDS: METOPROLOL SUCCINATE 25 MG TAB.SR.24H PO SCH (09:12)
[2019-08-10] MEDS: BUSPIRONE HCL 10 MG TABLET PO SCH (09:12)
[2019-08-10] MEDS: AMLODIPINE BESYLATE 10 MG TABLET PO SCH (09:12)
[2019-08-10] MEDS: APIXABAN 5 MG TABLET PO SCH (09:12)
[2019-08-10] MEDS: FLUTICASONE NASAL SPRAY 50 MCG/SPRY 120 SPRAY/16 GM NASL SCH (09:13)
[2019-08-10] MEDS: RAMIPRIL 10 MG CAPSULE PO SCH (09:13)
[2019-08-10] MEDS: BUPROPION HCL 75 MG TABLET PO SCH (09:13)
[2019-08-10] MEDS: FERROUS SULFATE 325 MG TABLET PO SCH (09:13)
[2019-08-10] MEDS: AMIODARONE HCL 200 MG TABLET PO SCH (09:13)
[2019-08-10] MEDS: ACETAMINOPHEN 325 MG TABLET PO PRN (09:21)
[2019-08-10 14:23] VITALS: BP 150/53
--- NOTE | 2019-08-10 14:51 | PDOC DISCHARGE SUMMARY ---
Impression - Admit/DC Date/PCP Admission Date/Primary Care Provider: 08/06/19 22:27 EHSAN RIOS PA-C Discharge Date: 08/10/19 - Discharge Diagnosis (1) Bilateral pneumonia Is this a current diagnosis for this admission?: Yes (2) Atrial fibrillation Is this a current diagnosis for this admission?: Yes (3) Acute renal failure Is this a current diagnosis for this admission?: Yes (4) Anemia Is this a current diagnosis for this admission?: Yes (5) Congestive heart failure Is this a current diagnosis for this admission?: No (6) Morbid obesity Is this a current diagnosis for this admission?: Yes (7) Shortness of breath Is this a current diagnosis for this admission?: Yes (8) Diabetes mellitus type 2 in obese Is this a current diagnosis for this admission?: Yes (9) Fibromyalgia Is this a current diagnosis for this admission?: Yes - Additional Information Resuscitation Status: Full Code Discharge Diet: Cardiac, Diabetic, Other (Comments) Discharge Activity: Activity As Tolerated, Balance Activity w/Rest, Weigh Daily Referrals: EHSAN RIOS PA-C [Primary Care Provider] - (Follow up within 1 week. NO ANSWER AT PROVIDER'S OFFICE LEFT A MESSAGE FOR OFFICE TO CALL PATIENT WITH A HOSPITAL FOLLOW UP APPT. DATE AND TIME.) Prescriptions: Azithromycin 250 mg PO ONCE PRN #1 tablet PRN Reason: Nebulizer and Compressor [Easy Air Compressor Nebulizer] 1 each MC ASDIR PRN #1 each PRN Reason: Ferrous Sulfate [Feosol 325 mg Tablet] 325 mg PO DAILY #90 tablet Fluticasone Propionate [Flonase Nasal [place] 50 Mcg/[place] 16 gm] 2 spray NASL DAILY #1 spray.pump Amlodipine Besylate [Norvasc 10 mg Tablet] 10 mg PO DAILY #30 tablet Albuterol Sulfate [Proair HFA Inhalation Aerosol 8.5 gm MDI] 2 puff IH Q4HP PRN #1 PRN Reason: Shortness Of Breath Guaifenesin/Codeine Phos [Robitussin-AC Liquid 5 ml Udcup] 5 ml PO QIDP PRN #20 udc PRN Reason: Multivitamin [Tab-A-Mindy (Multiple Vitamin) Tablet] 1 tab PO DAILY #90 tablet Albuterol Sulfate [Ventolin 0.083% Neb 2.5 mg/3 mL Ampul] 2.5 mg NEB Q6HP PRN #60 vial.neb PRN Reason: Shortness Of Breath Home Medications: Acetaminophen [Acetaminophen Extra Strength] 1,000 mg PO Q6HP PRN 08/07/19 Amiodarone HCl [Cordarone 200 mg Tablet] 200 mg PO DAILY 08/07/19 Apixaban [Eliquis 5 mg Tablet] 5 mg PO Q12 08/07/19 Bupropion HCl [Bupropion Xl] 150 mg PO DAILY 08/07/19 Buspirone HCl 5 mg PO BID 08/07/19 Docusate Sodium [Colace 100 mg Capsule] 100 mg PO BIDP PRN 08/07/19 Furosemide [Lasix 20 mg Tablet] 20 mg PO MOWEFR 08/07/19 Levothyroxine Sodium 50 mcg PO Q6AM 08/07/19 Metoprolol Succinate [Toprol Xl 25 mg Tab.sr] 25 mg PO DAILY 08/07/19 Pravastatin Sodium [Pravachol] 40 mg PO QPM 08/07/19 Ramipril [Altace 10 mg Capsule] 10 mg PO DAILY 08/07/19 Tramadol HCl [Ultram 50 mg Tablet] 50 mg PO Q6HP PRN 08/07/19 Acetaminophen [Tylenol 325 mg Tablet] 650 mg PO Q4HP PRN tablet 08/10/19 Albuterol Sulfate [Proair HFA Inhalation Aerosol 8.5 gm MDI] 2 puff IH Q4HP PRN #1 08/10/19 Albuterol Sulfate [Ventolin 0.083% Neb 2.5 mg/3 mL Ampul] 2.5 mg NEB Q6HP PRN #60 vial.neb 08/10/19 Amlodipine Besylate [Norvasc 10 mg Tablet] 10 mg PO DAILY #30 tablet 08/10/19 Azithromycin 250 mg PO ONCE PRN #1 tablet 08/10/19 Ferrous Sulfate [Feosol 325 mg Tablet] 325 mg PO DAILY #90 tablet 08/10/19 Fluticasone Propionate [Flonase Nasal [place] 50 Mcg/[place] 16 gm] 2 spray NASL DAILY #1 spray.pump 08/10/19 Guaifenesin [Robitussin Syrup 200 mg/10 ml Ud Cup] 200 mg PO Q4HP PRN udc 08/10/19 Guaifenesin/Codeine Phos [Robitussin-AC Liquid 5 ml Udcup] 5 ml PO QIDP PRN #20 udc 08/10/19 Multivitamin [Tab-A-Mindy (Multiple Vitamin) Tablet] 1 tab PO DAILY #90 tablet 08/10/19 Nebulizer and Compressor [Easy Air Compressor Nebulizer] 1 each MC ASDIR PRN #1 each 08/10/19 History of Present Illiness History of Present Illness: Per H&P by Dr. Sanchez: OLIVE BLANCA is a 69 year old female with a past medical history of diabetes, hypertension, anxiety, depression, morbid obesity, osteoarthritis, congestive heart failure, and atrial fibrillation. She presents with 2 months of waxing and waning shortness of breath diagnosed with upper respiratory infection completing a regimen of doxycycline and prednisone with short-lived improvement she returns with following a fever reported as 101.7. In the emergency department she is short of breath with retractions and +2 lower extremity edema. Systolic hypertension in the 180s and A. fib in the low 100s. She denies chest pain nausea or vomiting she admits to rhinorrhea, postnasal drip, nonproductive cough she also admits to feeling generally unwell for a extended period and subsequent discontinuation of several of her medications. Her work-up reveals a chest x-ray reveals multilobar pneumonia, leukocytosis, BNP of greater than 2000 and anemia. She started on empiric antibiotics, supplemental oxygen and referred to the hospitalist for admission. Hospital Course Hospital Course: (1) Bilateral pneumonia Resolved. Now maintaining oxygen saturations on room air while at rest. Blood cultures are negative at 72 hours. Patient was admitted to the medical floor on continuous cardiac telemetry. He was supported with supplemental oxygen, scheduled and as needed nebulizer treatments, Flonase, Robitussin, and Tessalon Perles. She was empirically placed on IV Rocephin and azithromycin. She is prescribed azithromycin to complete course of therapy following discharge. Pulmonary toilet was encouraged with incentive spirometer, flutter valve, and ambulation. (2) Atrial fibrillation Rate controlled on home medication regiment of amiodarone and Toprol. Anticoagulated on Eliquis. (3) Acute renal failure Improved; Cr trending down. Nearing baseline of 1.19 Proteinuria without hematuria. Patient received gentle IV fluids; p.o. fluids were encouraged. Her home dose furosemide was briefly held; she is instructed to resume this following discharge. Recommend repeat chemistry at follow-up appointment with PCP. (4) Anemia Hemoglobin 10.8; currently stable. No evidence of bleeding. Anemia panel confirms iron deficiency anemia. Continue multivitamin with iron supplement daily. (5) Congestive heart failure Ruled out. Echocardiogram revealed LVEF 60 to 65% with normal LV diastolic function. There is mild pulmonary hypertension. Continue atrial fibrillation rate control with amiodarone. Anticoagulated with Eliquis. Continue home dose ramipril and Toprol. (6) Morbid obesity Severe deconditioning unable to ambulate greater than 20 feet at baseline or climb stairs preventing entry and exit of home. Lifestyle modification dietary discretion advised. (7) Shortness of breath Resolved. Multifactorial shortness of breath secondary to bilateral pneumonia, uncontrolled A. fib with RVR, and anemia. Plan as outlined elsewhere. Likely undiagnosed obstructive sleep apnea, strongly suggest and recommended outpatient sleep study. (8) Diabetes mellitus type 2 in obese Hemoglobin A1c 8.4%. Lifestyle modification dietary discretion advised. Medication compliance encouraged. Resume outpatient medication regiment. Follow-up with PCP. (9) Fibromyalgia Continue home medication regiment. Encourage mobility. Physical Exam Vital Signs: Temp Pulse Resp BP Pulse Ox 97.9 F 95 16 147/49 H 95 08/10/19 13:54 08/10/19 13:54 08/10/19 13:54 08/10/19 13:54 08/10/19 13:54 Intake & Output 08/09/19 08/10/19 08/11/19 06:59 06:59 06:59 Intake Total 4957 1426 Balance 2527 1426 Weight 123.5 kg General appearance: PRESENT: no acute distress, cooperative, morbidly obese, well-developed, well-nourished Head exam: PRESENT: atraumatic, normocephalic Eye exam: PRESENT: conjunctiva pink, EOMI, PERRLA. ABSENT: scleral icterus Mouth exam: PRESENT: moist, tongue midline Respiratory exam: PRESENT: clear to auscultation fernando, symmetrical, unlabored, other - Ambulatory on room air. ABSENT: rales, rhonchi, wheezes Cardiovascular exam: PRESENT: RRR, +S1, +S2. ABSENT: diastolic murmur, rubs, systolic murmur Pulses: PRESENT: normal dorsalis pedis pul Vascular exam: PRESENT: normal capillary refill Extremities exam: PRESENT: full ROM, other - Chronic lymphedema BLE. ABSENT: calf tenderness, clubbing, pedal edema Musculoskeletal exam: PRESENT: ambulatory Neurological exam: PRESENT: alert, awake, oriented to person, oriented to place, oriented to time, oriented to situation, CN II-XII grossly intact. ABSENT: motor sensory deficit Psychiatric exam: PRESENT: appropriate affect, normal mood. ABSENT: homicidal ideation, suicidal ideation Skin exam: PRESENT: dry, intact, warm. ABSENT: cyanosis, rash Results Laboratory Results: WBC 11.4 10^3/uL (4.0-10.5) H 08/10/19 06:40 RBC 3.40 10^6/uL (3.72-5.28) L 08/10/19 06:40 Hgb 10.9 g/dL (12.0-15.5) L 08/10/19 06:40 Hct 32.4 % (36.0-47.0) L 08/10/19 06:40 MCV 96 fl (80-97) 08/10/19 06:40 MCH 32.0 pg (27.0-33.4) 08/10/19 06:40 MCHC 33.5 g/dL (32.0-36.0) 08/10/19 06:40 RDW 15.9 % (11.5-14.0) H 08/10/19 06:40 Plt Count 483 10^3/uL (150-450) H 08/10/19 06:40 Lymph % (Auto) Not Reportable 08/07/19 05:36 Harris % (Auto) Not Reportable 08/07/19 05:36 Eos % (Auto) Not Reportable 08/07/19 05:36 Baso % (Auto) Not Reportable 08/07/19 05:36 Reticulocyte # 0.049 10^6/uL (0.028-0.122) 08/07/19 05:36 Reticulocyte # Cancelled 08/07/19 05:36 Absolute Neuts (auto) Not Reportable 08/07/19 05:36 Absolute Lymphs (auto) Not Reportable 08/07/19 05:36 Absolute Monos (auto) Not Reportable 08/07/19 05:36 Absolute Eos (auto) Not Reportable 08/07/19 05:36 Absolute Basos (auto) Not Reportable 08/07/19 05:36 Total Counted 100 08/07/19 05:36 Seg Neutrophils % Not Reportable 08/07/19 05:36 Seg Neuts % (Manual) 84 % (42-78) H 08/07/19 05:36 Band Neutrophils % 1 % (3-5) L 08/06/19 17:00 Lymphocytes % (Manual) 11 % (13-45) L 08/07/19 05:36 Monocytes % (Manual) 5 % (3-13) 08/07/19 05:36 Eosinophils % (Manual) 0 % (0-6) 08/07/19 05:36 Basophils % (Manual) 0 % (0-2) 08/07/19 05:36 Abs Neuts (Manual) 15.6 10^3/uL (1.7-8.2) H 08/07/19 05:36 Abs Lymphs (Manual) 2.0 10^3/uL (0.5-4.7) 08/07/19 05:36 Abs Monocytes (Manual) 0.9 10^3/uL (0.1-1.4) 08/07/19 05:36 Absolute Eos (Manual) 0.0 10^3/uL (0.0-0.6) 08/07/19 05:36 Abs Basophils (Manual) 0.0 10^3/uL (0.0-0.2) 08/07/19 05:36 Reticulocyte # (manual) Cancelled 08/07/19 05:36 Toxic Granulation SLIGHT 08/07/19 05:36 Clumped Platelets PRESENT 08/07/19 05:36 Platelet Comment ADEQUATE 08/07/19 05:36 Polychromasia SLIGHT 08/06/19 17:00 Anisocytosis SLIGHT 08/07/19 05:36 Tear Drop Cells SLIGHT 08/07/19 05:36 Retic Count Cancelled 08/07/19 05:36 Retic Count (manual) Cancelled 08/07/19 05:36 Retic Count (auto) 1.48 % (0.66-2.85) 08/07/19 05:36 Retic Count (auto) Cancelled 08/07/19 05:36 Absolute Retic Cancelled 08/07/19 05:36 Sodium 139.4 mmol/L (137-145) 08/10/19 06:40 Potassium 4.4 mmol/L (3.6-5.0) 08/10/19 06:40 Chloride 108 mmol/L (98-107) H 08/10/19 06:40 Carbon Dioxide 22 mmol/L (22-30) 08/10/19 06:40 Anion Gap 9 (5-19) 08/10/19 06:40 BUN 35 mg/dL (7-20) H 08/10/19 06:40 Creatinine 1.51 mg/dL (0.52-1.25) H 08/10/19 06:40 Est GFR ( Amer) 41 (>60) L 08/10/19 06:40 Est GFR (MDRD) Non-Af 34 (>60) L 08/10/19 06:40 Glucose 130 mg/dL (75-110) H 08/10/19 06:40 POC Glucose 165 mg/dL (70-110) H 08/10/19 11:15 Hemoglobin A1c % 8.4 % (4.7-6.0) H 08/07/19 05:36 Lactic Acid 0.7 mmol/L (0.7-2.1) 08/06/19 22:40 Calcium 9.3 mg/dL (8.4-10.2) 08/10/19 06:40 Iron 18.0 ug/dL (37-170) L 08/07/19 05:36 TIBC 190 ug/dL (250-450) L 08/07/19 05:36 % Saturation 9 % 08/07/19 05:36 Ferritin 452.00 ng/mL (11.1-264.0) H 08/07/19 05:36 Total Bilirubin 0.3 mg/dL (0.2-1.3) 08/06/19 17:00 Direct Bilirubin 0.1 mg/dL (0.0-0.4) 08/06/19 17:00 Neonat Total Bilirubin Not Reportable 08/06/19 17:00 Neonat Direct Bilirubin Not Reportable 08/06/19 17:00 Neonat Indirect Bili Not Reportable 08/06/19 17:00 AST 12 U/L (14-36) L 08/06/19 17:00 ALT 11 U/L (<35) 02/13/20 17:00 Alkaline Phosphatase 91 U/L (38-126) 08/06/19 17:00 Creatine Kinase 24 U/L (30-135) L 08/07/19 05:36 CK-MB (CK-2) 0.42 ng/mL (<4.55) 08/06/19 17:00 Troponin I < 0.012 ng/mL 08/06/19 17:00 NT-Pro-B Natriuret Pep 2330 pg/mL (<125) H 08/06/19 17:00 Total Protein 6.1 g/dL (6.3-8.2) L 08/06/19 17:00 Albumin 2.9 g/dL (3.5-5.0) L 08/06/19 17:00 Vitamin B12 > 1000.0 pg/mL (239-931) H 08/07/19 05:36 Folate 14.50 ng/mL (>2.76) 08/07/19 05:36 Urine Color YELLOW 08/06/19 19:20 Urine Appearance SLIGHTLY-CLOUDY 08/06/19 19:20 Urine pH 5.0 (5.0-9.0) 08/06/19 19:20 Ur Specific [place] 1.019 08/06/19 19:20 Urine Protein >=500 mg/dL (NEGATIVE) H 08/06/19 19:20 Urine Glucose (UA) NEGATIVE mg/dL (NEGATIVE) 08/06/19 19:20 Urine Ketones NEGATIVE mg/dL (NEGATIVE) 08/06/19 19:20 Urine Blood NEGATIVE (NEGATIVE) 08/06/19 19:20 Urine Nitrite NEGATIVE (NEGATIVE) 08/06/19 19:20 Urine Bilirubin NEGATIVE (NEGATIVE) 08/06/19 19:20 Urine Urobilinogen NEGATIVE mg/dL (<2.0) 08/06/19 19:20 Ur Leukocyte Esterase MODERATE (NEGATIVE) H 08/06/19 19:20 Urine WBC (Auto) 35 /HPF 08/06/19 19:20 Urine RBC (Auto) 4 /HPF 08/06/19 19:20 U Hyaline Cast (Auto) 1 /LPF 08/06/19 19:20 Urine Bacteria (Auto) TRACE /HPF 08/06/19 19:20 Squamous Epi Cells Auto 1 /HPF 08/06/19 19:20 U Non-Squamous Epis Auto 1 /HPF 08/06/19 19:20 Urine Mucus (Auto) RARE /LPF 08/06/19 19:20 Urine Ascorbic Acid NEGATIVE (NEGATIVE) 08/06/19 19:20 08/06/19 08/06/19 17:00 17:00 CK-MB (CK-2) 0.42 Troponin I < 0.012 NT-Pro-B Natriuret Pep 2330 H Impressions: Chest X-Ray 08/06/19 14:11 IMPRESSION: Multicentric pneumonia. Plan Plan of Treatment: Patient is discharged to home with self-care. She is advised to follow-up with her primary care provider within 1 week. She is instructed to take her medications as prescribed. Avoid known respiratory triggers. Return to the emergency department as needed for concerning symptoms. Time Spent: Greater than 30 Minutes Stroke Is this a Stroke Patient?: No Acute Heart Failure - Is this a Heart Failure Patient?: No
== END 2019-08-10 15:11 | disposition home or self-care (01) | DRG 193 ==
LOC: ER 13:57 → EH 22:27 → 4S 08-07 15:45
PROVIDERS: ADMIT Internal Medicine; ATTEND Internal Medicine
DX: J18.9 Pneumonia, unspecified organism (principal); I50.23 Acute on chronic systolic (congestive) heart failure; N17.9 Acute kidney failure, unspecified; J44.0 Chronic obstructive pulmonary disease with (acute) lower respiratory infection; Z68.42 Body mass index [BMI] 45.0-49.9, adult; I48.20 Chronic atrial fibrillation, unspecified; E66.01 Morbid (severe) obesity due to excess calories; E11.9 Type 2 diabetes mellitus without complications; M79.7 Fibromyalgia; I11.0 Hypertensive heart disease with heart failure; F41.9 Anxiety disorder, unspecified; F32.9 Major depressive disorder, single episode, unspecified; D50.9 Iron deficiency anemia, unspecified; E78.5 Hyperlipidemia, unspecified; E03.9 Hypothyroidism, unspecified; E78.00 Pure hypercholesterolemia, unspecified; Z96.653 Presence of artificial knee joint, bilateral; Z79.01 Long term (current) use of anticoagulants; Z79.899 Other long term (current) drug therapy; Z60.2 Problems related to living alone; Z86.73 Personal history of transient ischemic attack (TIA), and cerebral infarction without residual deficits
CPT/HCPCS: 36415; 71045; 80048; 80053; 81001; 82550; 82553; 82607; 82728; 82746; 82962; 83036; 83540; 83550; 83605; 83880; 84484; 85025; 85027; 85045; 87040; 93005; 93010; 93306; 94640; 94667; 94668; 94799; 99285; J0456; J0696; J1815; J3490; J7030; J7060; J7620